=== PATIENT | female | born 1975 | race Caucasian/White ===

== ENCOUNTER 2020-04-10 19:31 | Outpatient (CLI) | payer OTHER | END 2020-04-10 19:32 | disposition critical access hospital (66) | LOC: EMS 19:31 | PROVIDERS: ATTEND Surgery | DX: R07.9 Chest pain, unspecified (principal) | CPT/HCPCS: A0425; A0427 ==

== ENCOUNTER 2020-04-10 19:55 | Emergency (ER) | payer OTHER ==
[2020-04-10 20:23] VITALS: BP 116/53
[2020-04-10 22:15] LABS: BASOPHILS # (AUTO) 0.1 10^3/uL (0.0-0.1); BASOPHILS % (AUTO) 0.6 %; EOSINOPHILS # (AUTO) 0.1 10^3/uL (0.0-0.7); EOSINOPHILS % (AUTO) 1.1 %; HGB - HEMOGLOBIN 12.4 g/dL (12.0-16.0); LYMPHOCYTES # (AUTO) 1.1 10^3/uL (1.5-3.5); LYMPHOCYTES % (AUTO) 12.9 %; MEAN CORPUSCULAR HEMOGLOBIN 30.6 pg (27.0-31.0); MEAN CORPUSCULAR HGB CONC 33.6 g/dL (32.0-36.0); MEAN CORPUSCULAR VOLUME 91.1 fL (81.0-99.0); MONOCYTES # (AUTO) 0.4 10^3/uL (0.0-1.0); MONOCYTES % (AUTO) 4.2 %; NEUTROPHILS # (AUTO) 6.9 10^3/uL (1.5-6.6); NEUTROPHILS % (AUTO) 80.8 %; PLT - PLATELET COUNT 307 10^3/uL (130-450); RED BLOOD COUNT 4.05 10^6/uL (4.20-5.40); RED CELL DISTRIBUTION WIDTH 12.8 % (12.0-15.0); WHITE BLOOD COUNT 8.5 x10^3/uL (4.8-10.8)
[2020-04-10 22:28] LABS: ALBUMIN/GLOBULIN RATIO 1.3 (1.0-2.2); BILIRUBIN,TOTAL 0.6 mg/dL (0.2-1.0); CALCIUM 9.3 mg/dL (8.5-10.3); CREATININE 0.7 mg/dL (0.4-1.0); TOTAL PROTEIN 7.2 g/dL (6.7-8.2)
--- NOTE | 2020-04-10 22:51 | ED Physician Documentation ---
PD HPI CHEST PAIN - Stated complaint Stated Complaint: CHEST DISCOMFORT - Chief complaint Chief Complaint: Cardiac - History obtained from History obtained from: Patient - History of Present Illness Timing - onset: Enter time (18:00), Today Timing - onset during: Rest Timing - details: Abrupt onset Pain level max: 2 Pain level now: 0 Quality: Dull Location: Substernal Radiation: Other (no radiation) Associated symptoms: Palpitations, Other (anxious). No: Shortness of air, Diaphoresis, Nausea, Vomiting, Feeling faint / dizzy, General Weakness Similar symptoms before: Diagnosis (similar to previous episodes of PSVT) Recently seen: Not recently seen - Additional information Additional information: c/o sudden onset rapid palpitations 6 PM today while at rest associated with anxiety (developed anxiety after the palpitations started). she feels the palpitations are similar to previous episodes of PSVT. she also had mild midline/left chest discomfort which resolved [employer]. BIBA, medics administered 1mg IV morphine. palpitations also have resolved [employer] Review of Systems Constitutional: denies: Fever, Chills, Sweats Cardiac: reports: Chest pain / pressure, Palpitations. denies: Pedal edema, Calf pain Respiratory: reports: Reviewed and negative GI: reports: Reviewed and negative PD PAST MEDICAL HISTORY - Past Medical History Past Medical History: Yes Cardiovascular: Hypertension ULTRASOUND TECH: Ovarian cysts, Fibroids Psych: Anxiety, Post traumatic stress disorder - Past Surgical History Past Surgical History: Yes /ULTRASOUND TECH: Tubal ligation, LEEP (Cervical surgery) - Allergies Allergies/Adverse Reactions: Allergies Allergy/AdvReac Type Severity Reaction Status Date / Time diphenhydramine Allergy Anxiety Verified 04/10/20 20:05 [From Benadryl] fluticasone [From Flonase] Allergy Dizziness Verified 04/10/20 20:04 promethazine [From Phenergan] Allergy Anaphylaxis Verified 04/10/20 20:05 - Social History Does the pt smoke?: No Smoking Status: Never smoker Does the pt drink ETOH?: Yes Does the pt have substance abuse?: No - POLST Patient has POLST: No PD ED PE NORMAL - Vitals Vital signs reviewed: Yes - General General: Alert and oriented X 3, No acute distress, Well developed/nourished - Cardiac Cardiac: RRR, No murmur, No gallop, No rub - Respiratory Respiratory: No respiratory distress, Clear bilaterally - Derm Derm: Normal color, Warm and dry - Extremities Extremities: No edema Results - Vitals Vitals: Oxygen O2 Source Room air - EKG (time done) No standard instances Rate: Rate (enter#) (98) Rhythm: NSR Raymond: Normal Intervals: Normal [place] QRS: Low voltage Ischemia: Normal ST segments - Labs Labs: Laboratory Tests 04/10/20 04/10/20 04/10/20 22:09 22:09 22:09 WBC 8.5 RBC 4.05 L Hgb 12.4 Hct 36.9 L MCV 91.1 MCH 30.6 MCHC 33.6 RDW 12.8 Plt Count 307 MPV 10.0 Neut # (Auto) 6.9 H Lymph # (Auto) 1.1 L [place] # (Auto) 0.4 Eos # (Auto) 0.1 Baso # (Auto) 0.1 Absolute Nucleated RBC 0.00 Nucleated RBC % 0.0 Sodium 140 Potassium 3.8 Chloride 105 Carbon Dioxide 26 Anion Gap 9.0 BUN 15 Creatinine 0.7 Estimated GFR (MDRD) 90 Glucose 137 H Calcium 9.3 Total Bilirubin 0.6 AST 16 ALT 17 Alkaline Phosphatase 68 Troponin I High Sens 2.7 Total Protein 7.2 Albumin 4.0 Globulin 3.2 Albumin/Globulin Ratio 1.3 Lipase 22 - Rads (name of study) chest xray Radiology: Prelim report reviewed, See rad report PD MEDICAL DECISION MAKING - ED course Complexity details: reviewed results, re-evaluated patient, considered differential, d/w patient ED course: remained asymptomatic during ED stay Departure - Departure Disposition: 01 Home, Self Care Clinical Impression: Palpitations Condition: Good Instructions: ED Palpitations Discharge Date/Time: 04/10/20 23:18
--- NOTE | 2020-04-11 08:12 | XRAY Report ---
PROCEDURE: Chest 2 View X-Ray INDICATIONS: chest pain TECHNIQUE: 2 view(s) of the chest. COMPARISON: None. FINDINGS: Surgical changes and devices: None. Lungs and pleura: No pleural effusions or pneumothorax. Focal opacity noted in the right lung base w hich could represent pneumonia, aspiration or parenchymal scarring. Mediastinum: Mediastinal contours are normal. Heart size is normal. Bones and chest wall: No suspicious bony abnormalities. Soft tissues appear unremarkable. IMPRESSION: Small right middle lobe opacity which could represent scarring, atelectasis, aspiration or pneumonia. Reviewed by: Yane Lopez MD, PhD on 04/11/2020 8:11 AM PDT Approved by: Yane Lopez MD, PhD on 04/11/2020 8:11 AM PDT Station ID: [id number]
== END 2020-04-10 23:18 | disposition home or self-care (01) ==
LOC: EDUNIT# → ED 19:55
DX: R00.2 Palpitations (principal); R07.89 Other chest pain; F41.9 Anxiety disorder, unspecified; I10 Essential (primary) hypertension
CPT/HCPCS: 36415; 71046; 80053; 83690; 84484; 85025; 93005; 99284

== ENCOUNTER 2020-06-05 15:07 | Outpatient (CLI) | payer OTHER ==
--- NOTE | 2020-06-05 16:37 | SLEEP CARE CONSULTATION ---
Information from patient questionnaire entered by Hanna Mathur. I have reviewed and concur with the information entered by Hanna Mathur. This document represents the service I personally performed and the decisions made by me, Phan Nava MD, [facility]. History of Present Illness Service Date and Time: 06/05/2020 1507 Reason for Visit: New patient Chief Complaint: reports: Insomnia, Other (Sleep apnea) Date of Onset: years Usual bedtime: 8 am Time it takes to fall asleep: varies Snores at night: Yes Observed to quit breathing while asleep: Yes Sleeps alone due to snoring: No (other health reasons) Number of times waking at night: varies Reasons for waking at night: reports: Choking, Snoring, Gasping for air, Pain Toss, Turn, or Twitch while sleeping: Yes Recalls having dreams: Yes Usually gets out of bed at: 2-4 houts after sleep Feels refreshed in the morning: No Morning headache: Yes Sleepy or fatigued during the day: Yes Ever fallen asleep while driving: No Takes day naps: No Dreams during day naps: No Prior sleep studies: No Additional HPI information: I had the pleasure of seeing Ms. Lopes today regarding the possibility of her having a sleep disorder. As you know, she is a 45 year old lady who complains of insomnia and snore. She says her snore got worse after gained 100+ lbs being put on steroid for lung cancer. The patient tells me that she normally goes to bed around 7 am, and it takes her approximately just a few minutes to fall asleep. She takes clonazepam and metoprolol before her bedtime. She has been told that she snores loudly and irregularly at night. She has also been observed to stop breathing in her sleep. Her spouse is in [place]. She can recall waking up on the average of 1 - 2 times during the night. Most of the time she wakes up because of something startling her. She has awakened occasionally because of her own snoring, choking, and having to gasp for air. There is a lot of tossing and turning in her sleep. No somniloquy (sleep talking) or somnambulism (sleep walking). Generally she can recall having dreams. In the morning she usually gets up out of the bed around 11 a.m. - noon not feeling refreshed nor rested. She usually has headache that lasts 2 hours. During the day she complains of feeling sleepy and fatigued. Her score on [place] Sleepiness Scale is 7 out of 24. She has never fallen asleep while driving nor has had any accident due to sleepiness. She usually does not take naps during the day. She reports having impaired concentration during the day. She also reports sleep paralysis and restless leg syndrome. - Parasomnia Symptoms Ever been unable to move upon waking from sleep: Yes Ever felt weak in the knees when startled or emotional: Yes Bothered by creepy, crawly, restless sensations in legs: Yes Problems with memory or concentration: Yes Subjective Initial [place] Sleepiness Scale score: 7 (in 2019 ) Past Medical History Past Medical History: reports: Hypertension, Dysphagia, Claustrophobia, Arthritis, Arrythmia, Fibromyalgia, Anemia, Anxiety, Asthma, Depression, Emphysema, Mood disorder, GERD, Other (lung cancer; s/p lobectomy 2016) Social History The patient's occupation is disabled. Patient is and lives in [place]. Have you smoked in the past 12 months: No Cigarettes per day (20/pack): 20 Years of smokin Quit date: 2015 Smoking Pack Years: 30.0 Alcohol use: No Caffeine use: Yes Caffeine amount and frequency: varies, usually 1/2 caff Family History Family history of sleep disordered breathing: Yes (grandmother, father, brother) Family Hx Sleep Apnea: Sibling: Sleep apnea - Treated Allergies and Home Medications Drug allergies reviewed: Yes Home medication list reviewed: Yes Review of Systems Weight gain over past 5 years: 100 Cardiovascular: reports: high blood pressure (other), palpitations, irregular heart rate or pulse, leg or foot swelling, have to sleep sitting up, other (PSVT) Respiratory: reports: shortness of breath, wheeze, sputum production Gastrointestinal: reports: heartburn, difficulty swallowing, nausea (sometimes), diarrhea, abdominal pain, other (removal of pre-cancerous polyops, diverticulosis) Urinary: reports: frequency, urgency Neurological: reports: headaches, head trauma, disorientation, speech dysfunction, gait or balance problems, other (brain fog, short term memory loss, post concusive disorder) Psychiatric: reports: anxiety, depression, mood disorder, claustrophobia, other (early onset PTSD) Ear/Nose/Throat: reports: nasal congestion, sinus problems, dry mouth/throat, hoarseness, injury to nose, wisdom teeth removed Endocrine: reports: sluggishness, too hot or cold, excessive thirst, increased urination, unexplained weakness (sometimes), other (adrenol adenoma) Musculoskeletal: reports: joint pain, neck pain, back pain, joint swelling, muscle pain or cramping, mobility problems Immunologic: reports: sneezing, rash, itching, allergies to food or environment Physical Exam Height: 5 ft 1 in Weight: 225 lb Body Mass Index: 42.5 BMI Classification: Morbidly Obese Impression and Plan IMPRESSION: 1. Obstructive Sleep Apnea-Hypopnea Syndrome, as suggested by history of loud and irregular snoring, observed cessation of breath while asleep, unrefreshed sleep, cognitive impairment, and daytime hypersomnolence. Narrow oropharynx and obesity are common predisposing factors for obstructive sleep apnea-hypopnea syndrome. Pathophysiology of sleep-disordered breathing was discussed. I recommend proceeding to polysomnography to confirm the diagnosis and to assess severity. If she has significant sleep disordered breathing, a manual CPAP titration study will also be performed to find the optimal treatment pressure. I informed the patient of what the sleep studies involve and after some discussion, she agreed to proceed. 2. Circadian Rhythm Disorder. The patient presently sleeps during the day. Because she does not work, it does not create too much problem for her. We will arrange for her sleep study to be performed during the day instead of at night. Plan: 1. Schedule an in-laboratory polysomnography during the day. 3. Avoid alcohol, sedative and muscle relaxant around bedtime. 4. Attempt to lose weight. 5. Return in 1 to 2 weeks after the study to discuss results and initiate therapy. Visit Type: Telehealth Video Video Type: [employer] Other Participants: Child Location of Provider: Home Patient agrees and consents to this telehealth visit type: Yes Patient agrees to have their insurance billed: Yes Time Spent with Patient (minutes): 15 Provider Statement: I spent 100% of the Telehealth Video Call with the patient with greater than 50% spent counseling the patient and coordination of care.
== END 2020-06-05 15:08 | disposition home or self-care (01) ==
LOC: SC 15:07
PROVIDERS: ATTEND Internal Medicine Pulmonary Disease
DX: R06.83 Snoring (principal); G47.8 Other sleep disorders; G47.10 Hypersomnia, unspecified; R51 Headache; R06.81 Apnea, not elsewhere classified; E66.01 Morbid (severe) obesity due to excess calories; Z68.41 Body mass index [BMI] 40.0-44.9, adult; I10 Essential (primary) hypertension; I49.9 Cardiac arrhythmia, unspecified; G47.20 Circadian rhythm sleep disorder, unspecified type

== ENCOUNTER 2020-07-19 07:40 | Outpatient (CLI) | payer OTHER | END 2020-07-19 07:41 | disposition EMS.NT | LOC: EMS 07:40 | PROVIDERS: ATTEND Surgery | DX: R06.02 Shortness of breath (principal) ==

== ENCOUNTER 2020-11-14 16:04 | Outpatient (CLI) | payer OTHER ==
[2020-11-14 16:50] VITALS: BP 100/78
--- NOTE | 2020-11-14 16:50 | SLEEP CARE CONSULTATION ---
Information from patient questionnaire entered by Moraima Harkins. I have reviewed and concur with the information entered by Moraima Harkins. This document represents the service I personally performed and the decisions made by me, Cristy Mendoza ARNP. History of Present Illness Service Date and Time: 11/14/2020 1604 Reason for follow up: other (Restart process) Prior sleep studies: No HPI additional information: I had the pleasure of seeing ISMA JIMENEZ today regarding the possibility of her having a sleep disorder. Her current complaints are unrefreshed sleep, excessive daytime sleepiness, waking up with heart pounding in the morning, morning headaches, she snores and has observed pauses in breathing when sleeping per her . She feels nearly daily like the blood in her body is in the wrong place when she wakes in the morning and a pulse oximeter she bought states low reading. She has a history of lung cancer, thoracotomy, PSVT syndrome and PTSD. She was referred prior to Covid pandemic and on her way prior to getting a sleep study done she was accosted. She is not returning to get evaluated for sleep disorder. Sleep Study - Results Prior sleep studies: No Subjective Initial [place] Sleepiness Scale score: 7 (in 2020 ) Current [place] Sleepiness Scale score: 7 Allergies and Home Medications Drug allergies reviewed: Yes (diphenhydramine, fluticasone, promethazine) Home medication list reviewed: Yes Allergy and home medication list: Metropolol 12.5 mg bid Clonazepam Vitamin C and iron Vitamin E Creon daily multivitamin Protonix Albuterol inhaler Review of Systems Review of systems same as previous: Yes (no changes) Physical Exam Blood Pressure: 100/78 Cuff size: wrist Heart Rate: 93 O2 Saturation: 97 Height: 5 ft 2 in Weight: 233 lb Body Mass Index: 42.6 BMI Classification: Morbidly Obese Impression and Plan 1. Suspected Obstructive Sleep Apnea-Hypopnea Syndrome, as suggested by a history of loud and irregular snoring, observed cessation of breath while asleep, gasping or choking in sleep, morning headache, frequent awakening during the night, unrefreshed sleep, cognitive impairment, and excessive daytime sleepiness. Narrow oropharynx and obesity are common predisposing factors for obstructive sleep apnea-hypopnea syndrome. I recommend proceeding to polysomnography to confirm the diagnosis and to assess severity. If the patient has significant sleep disordered breathing, a manual CPAP titration study will also be performed to find the optimal treatment pressure. I informed the patient of what the sleep studies involve and after some discussion, obtained agreement to proceed. The pathophysiology of obstructive sleep apnea-hypopnea syndrome was discussed with the patient and health risks of cardiovascular and cerebrovascular disease if not treated. Risks of drowsy driving discussed in detail and patient advised to avoid long distance driving and to tie puller at the first sign of drowsiness. Patient agreed to plan. She has history paroxysmal supraventricular tachycardia syndrome and PTSD. * Schedule polysomnography +- manual CPAP titration study and return in 1-2 weeks after the study to discuss result and initiate therapy. * Avoid long distance driving or driving when feeling sleepy. * Avoid alcohol, sedative and muscle relaxant around bedtime. * Attempt to lose weight. * Review instructions provided by trained office staff on how to prepare for the sleep study. * Return for follow-up after sleep study completed. Counseling Topics: Weight loss health impact Visit Type: In Office Time Spent with Patient (minutes): 30 Provider Statement: I spent 100% of the Face to Face Visit with the patient with greater than 50% spent counseling the patient and coordination of care.
== END 2020-11-14 16:05 | disposition home or self-care (01) ==
LOC: SC 16:04
PROVIDERS: ATTEND Nurse Practitioner Family
DX: R06.83 Snoring (principal); R06.81 Apnea, not elsewhere classified; G47.8 Other sleep disorders; R51.9 Headache, unspecified; G47.10 Hypersomnia, unspecified; E66.01 Morbid (severe) obesity due to excess calories; Z68.41 Body mass index [BMI] 40.0-44.9, adult; R41.89 Other symptoms and signs involving cognitive functions and awareness
CPT/HCPCS: 99212; 99214

== ENCOUNTER 2021-01-01 15:28 | Outpatient (CLI) | payer OTHER | END 2021-01-01 15:29 | disposition home or self-care (01) | LOC: SC 15:28 | PROVIDERS: ATTEND Nurse Practitioner Family | DX: G47.33 Obstructive sleep apnea (adult) (pediatric) (principal); R09.02 Hypoxemia; E66.01 Morbid (severe) obesity due to excess calories; Z68.41 Body mass index [BMI] 40.0-44.9, adult | CPT/HCPCS: 95806 ==

== ENCOUNTER 2021-01-08 16:45 | Outpatient (CLI) | payer OTHER ==
--- NOTE | 2021-01-08 17:24 | SLEEP CARE CONSULTATION ---
Information from patient questionnaire entered by Moraima Harkins. I have reviewed and concur with the information entered by Moraima Harkins. This document represents the service I personally performed and the decisions made by me, Cristy Mendoza ARNP. History of Present Illness Service Date and Time: 01/08/2021 1645 Initial [place] Sleepiness Scale score: 7 (in 2020 ) Current [place] Sleepiness Scale score: 5 Additional HPI information: ISMA JIMENEZ returns for follow up and results of the recently performed home sleep study. I explained the pathophysiology behind obstructive sleep apnea. We then spent quite a bit of time discussing different treatment options. For mild obstructive sleep apnea, surgery and oral appliance are alternatives to nasal CPAP therapy but in moderate or severe cases, nasal CPAP is the most effective and reliable treatment. Because apnea is primarily in supine position, then positional management therapy could be effective. Methods discussed such as positioning with pillows, using a T-shirt with tennis balls in the back, and shown commercial products that have a pillow format on back to prevent supine sleep. I reviewed the impact of weight changes on sleep apnea and strongly recommended losing weight. After some discussion, the patient opted to go with the nasal CPAP therapy. Nasal autoCPAP set at 4-15 cmH20 will be ordered with rationale explained. A manual titration study will be ordered if unable to find optimal pressure with office adjustments. I explained how CPAP machine works with sample devices Respironics Dreamstation and [employer] [id number] and what to expect when using the machine. Using CPAP every night in order to get used to it was emphasized. Patient advised to put CPAP mask on before getting into bed so as not to fall asleep without CPAP. To assist acclimation to CPAP use, it could also be used for a short time during day while reading or watching TV. The patient was instructed to call the CPAP supplier to discuss any mechanical problem that may occur. If the mask given is uncomfortable or is difficult to keep on through the night even with adjustment, contact the CPAP supplier as many will replace with another mask style if notified before 30 days. If snoring or perceives is not getting enough air or too much air from the machine, notify this office. [facility] patient education PAP tips reviewed and given to patient. Patient does not drink alcohol. Patient was cautioned about risks of drowsy driving until sleepiness symptoms resolve. Patient denies drowsy driving. Sleep Study - Results Type of Sleep Study: Home sleep study Prior sleep studies: No Polysomnography/Home Sleep Study results: Physician Impression: The quality of the study is good. The length of the study is adequate (> 240 minutes). Please also see the tabulated and graphic data. 1. Obstructive Sleep Apnea-Hypopnea (ICD-10 G47.33), mild, with an AHI of 11.0 /hr and clive SaO2 of 79%. During the study, the patient had 74 apneas (72 obstructive, 0 central, 2 mixed) and 34 hypopneas. The longest episode lasted 66.0 seconds. The respiratory events occurred independently of sleep stage and body position (supine AHI was 10.0 and non-supine, 12.28). 2. Hypoxemia (ICD-10 R09.02), moderate, with the lowest oxygen saturation of 79 % and 18.9 minutes with SaO2 under 90%. Baseline oxygen saturation was normal (Average oxygen saturation was 94%). Allergies and Home Medications Home medication list reviewed: Yes Allergy and home medication list: increase in metroprolol to 25 mg 2 x day Vitamin D 1000 IU in addition Review of Systems Review of systems same as previous: Yes (no changes) Physical Exam Heart Rate: 92 O2 Saturation: 98 Height: 5 ft 2 in Weight: 235 lb Body Mass Index: 43.0 BMI Classification: Morbidly Obese Impression and Plan 1. Obstructive Sleep Apnea-Hypopnea Syndrome, mild, with lowest oxygen saturation of 79%. Obviously this is the cause of the patients symptoms of unrefreshed sleep, and excessive daytime sleepiness. Positive pressure therapy could benefit PTSD (mood disorder) and heart arrhythmia (paroxysmal SVT). As mentioned above, the patient will be started on nasal autoCPAP therapy with pressure set at 4-15 cmH2O. A manual titration study will be completed if unable to find optimal treatment pressure with office adjustments. Compliance guidelines also reviewed. A copy of compliance guidelines will be given for reference at check out. * Nasal auto CPAP therapy, pressure at 4-15 cm H2O. * Attempt to lose weight. * Avoid alcohol consumption near bedtime. * The patient is again cautioned about driving until sleepiness completely resolves. * Return one month after CPAP obtained. I will assess response to therapy and compliance at that time. Counseling Topics: Weight loss health impact Visit Type: In Office Time Spent with Patient (minutes): 26 Provider Statement: I spent 100% of the Face to Face Visit with the patient with greater than 50% spent counseling the patient and coordination of care.
== END 2021-01-08 16:46 | disposition home or self-care (01) ==
LOC: SC 16:45
PROVIDERS: ATTEND Nurse Practitioner Family
DX: G47.33 Obstructive sleep apnea (adult) (pediatric) (principal); E66.01 Morbid (severe) obesity due to excess calories; Z68.41 Body mass index [BMI] 40.0-44.9, adult
CPT/HCPCS: 99212; 99213

== ENCOUNTER 2021-02-20 16:52 | Outpatient (CLI) | payer OTHER ==
--- NOTE | 2021-02-20 17:54 | SLEEP CARE CONSULTATION ---
Information from patient questionnaire entered by Moraima Harkins. I have reviewed and concur with the information entered by Moraima Harkins. This document represents the service I personally performed and the decisions made by me, Cristy Mendoza ARNP. History of Present Illness Service Date and Time: 02/20/2021 165 Previous diagnosis: Mild, Obstructive Sleep Apnea-Hypopnea Syndrome AHI: 11.0 Reason for follow up: other (trouble with CPAP use) Equipment type: CPAP Equipment obtained from: Other ([employer]; got initial supplies) Mask style: Nasal Last cushion change: 3 weeks Prior sleep studies: No Year and Where: 2020 [facility] Type of Sleep Study: Home sleep study HPI additional information: ISMA JIMENEZ was diagnosed to have mild, AHI 11.0, obstructive sleep apnea- hypopnea syndrome and returned today with spouse for CPAP therapy for follow up due to having issues with CPAP use. CPAP Compliance Data - Data Reviewed with Patient Average duration of nightly device use: 7 h 8 min Compliance rate %: 83.3 Current pressure setting (cmH2O): 4-15 (median 5.3, avg 8.0 and max 9.5) Humidity settin Heated hose settin Average residual AHI: 3.6 Average large leak: 5 min 17 sec Subjective Patient concerns: reports: aerophagia, condensation in mask/hose, nasal congestion, dry mouth, nose, throat, other (Headache). denies: mask discomfort, air blowing in eyes, mask leak noise, epistaxis Observed to snore while using device: No Current pressure setting perceived as: too low (?) On therapy, patient: reports: awakening more refreshed, other (still feeling fatigued during the day) Initial [place] Sleepiness Scale score: 7 (in 2019 ) Current [place] Sleepiness Scale score: 9 Allergies and Home Medications Home medication list reviewed: Yes (advair inhaler, not started yet) Review of Systems Review of systems same as previous: Yes (no changes) Physical Exam Heart Rate: 83 O2 Saturation: 98 Height: 5 ft 2 in Weight: 238 lb Body Mass Index: 43.5 BMI Classification: Morbidly Obese Impression and Plan 1. Obstructive Sleep Apnea-Hypopnea Syndrome, mild, with good treatment compliance and good apnea control. On CPAP therapy, the patient does feel more rested when she gets up in the morning. She continues to have fatigue during the day. She was told by the RT at the [facility] [place] that she was having central apneas and that she should make sure she was on the right machine. She did feel that her HST was not completely accurate because she only felt like she slept 2 hours that night. She is very concerned that she is getting the appropriate treatment. I think it would help to have her do a titration study to verify she is on appropriate therapy. She agreed to plan. Patient also thinks her pressure may be too low but also complains of some aerophagia. I am going to adjust her pressure setting to 5-10 cmH2O to reflect machine use and she will let me know if the pressure is uncomfortable so I can adjust it again. She has had issues with mask fitting but states the current nasal mask is comfortable. She did not know she could use the humidifier and was having some dry mouth. She turned it on 2 nights ago and felt like there was a w et blanket under her nose. Oral dryness can be reduced by adjusting humidity setting higher or heated hose lower or by adjusting both settings. Verbal instructions given on how to change humidity and heated hose settings with rationale explaining why to change. Patient advised that chronic oral dryness can affect dental health. She is going to try to adjust her humidity and heated hose until she finds a comfortable setting. She voiced understanding and agreement. Patient's apnea severity and rationale for treatment to reduce apnea, improve sleep quality and reduce cardiovascular and cerebrovascular events was reviewed. I also reviewed the benefit of consistent device use of CPAP for arrhythmia, and mood disorder (PTSD). * Titration study * Change auto CPAP pressure to 5-10 cmH2O * Notify me if snoring with mask or feeling that the pressure is too much or too little * Attempt to lose weight * Call this office if any problems using CPAP * Return for follow up after titration study completed, or sooner if concerns arise Counseling Topics: Weight loss health impact Visit Type: In Office Other Participants: Spouse/Significant Other Time Spent with Patient (minutes): 39 Provider Statement: I spent 100% of the Face to Face Visit with the patient with greater than 50% spent counseling the patient and coordination of care.
== END 2021-02-20 16:53 | disposition home or self-care (01) ==
LOC: SC 16:52
PROVIDERS: ATTEND Nurse Practitioner Family
DX: G47.33 Obstructive sleep apnea (adult) (pediatric) (principal); E66.01 Morbid (severe) obesity due to excess calories; Z68.41 Body mass index [BMI] 40.0-44.9, adult
CPT/HCPCS: 99212; 99214

== ENCOUNTER 2021-03-31 13:15 | Emergency (ER) | payer OTHER ==
--- NOTE | 2021-03-31 13:50 | ED Physician Documentation ---
PD HPI LOWER EXT INJURY - Stated complaint Stated Complaint: LT LEG PX - Chief complaint Chief Complaint: Ext Problem - History obtained from History obtained from: Patient - Additional information Additional information: 45-year-old woman with history of lung cancer in remission, fibromyalgia, degenerative disc disease has been in cardiac rehab lately for deconditioning and doing more activity. She woke yesterday morning at 6 AM, about 30 hours ago with severe left leg pain of the calf and hamstring. She presumes it may be related to increased activity from cardiac rehab, but was referred here for further evaluation and treatment by nurse advice line. She has a specific concern about rhabdomyolysis. No increase in shortness of breath or chest pain. 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 FELLER BLINDSTITCH: Tubal ligation, LEEP (Cervical surgery) - Present Medications Home Medications: Ambulatory Orders Medication Instructions Recorded Confirmed Albuterol Sulfate [Proair Hfa 1 puffs INH Q4HR PRN 03/31/21 03/31/21 Inhaler] Fluticasone/Salmeterol [Advair Hfa 1 puffs INH DAILY 03/31/21 03/31/21 115-21 Mcg Inhaler] Metoprolol Tartrate [Lopressor] 25 mg PO DAILY 03/31/21 03/31/21 Pantoprazole [Protonix inj] 40 mg PO DAILY 03/31/21 03/31/21 clonazePAM [Clonazepam] 0.5 mg PO DAILY 03/31/21 03/31/21 - Allergies Allergies/Adverse Reactions: Allergies Allergy/AdvReac Type Severity Reaction Status Date / Time diphenhydramine Allergy Anxiety Verified 04/10/20 20:05 [From Benadryl] fluticasone [From Flonase] Allergy Dizziness Verified 04/10/20 20:04 promethazine [From Phenergan] Allergy Anaphylaxis Verified 04/10/20 20:05 - Social History Does the pt smoke?: No Smoking Status: Never smoker Does the pt drink ETOH?: Yes Does the pt have substance abuse?: No - POLST Patient has POLST: No PD ED PE NORMAL - Vitals Vital signs reviewed: Yes - General General: Alert and oriented X 3, No acute distress - Extremities Extremities: Other (Left leg is not edematous, pedal perfusion is normal. She is tender about the calf, hamstring, buttock, and medial thigh.) - Neuro Neuro: Alert and oriented X 3, Normal speech Results - Vitals Vitals: Vital Signs - 24 hr 03/31/21 03/31/21 13:26 15:02 Temperature 36.6 C 36.4 C L Heart Rate 85 73 Respiratory 16 16 Rate Blood Pressure 104/76 104/69 O2 Saturation 98 96 Oxygen O2 Source Room air - Labs Labs: Laboratory Tests 03/31/21 03/31/21 14:09 14:09 WBC 5.3 RBC 4.14 L Hgb 11.9 L Hct 36.8 L MCV 88.9 MCH 28.7 MCHC 32.3 RDW 13.2 Plt Count 320 MPV 9.6 Neut # (Auto) 3.6 Lymph # (Auto) 1.2 L Jackson # (Auto) 0.4 Eos # (Auto) 0.1 Baso # (Auto) 0.0 Absolute Nucleated RBC 0.00 Nucleated RBC % 0.0 Sodium 138 Potassium 4.1 Chloride 103 Carbon Dioxide 27 Anion Gap 8.0 BUN 12 Creatinine 0.7 Estimated GFR (MDRD) 90 Glucose 107 H Calcium 9.2 Magnesium 2.2 Total Creatine Kinase 277 H PD MEDICAL DECISION MAKING - ED course ED course: 45-year-old woman with left leg pain, seems muscular, given her history though DVT is considered, she was also concerned about rhabdomyolysis. Neither are present on testing. Departure - Departure Disposition: 01 Home, Self Care Clinical Impression: Pain of lower extremity Qualifiers: Laterality: left Qualified Code(s): M79.605 - Pain in left leg Condition: Good Record reviewed to determine appropriate education?: Yes Instructions: ED Muscle Pain Leg Cramps Comments: Call your doctor to arrange a follow-up appointment, make the next available appointment. In the interim, return anytime if worse or if new symptoms develop. Discharge Date/Time: 03/31/21 15:04
[2021-03-31 14:15] LABS: BASOPHILS % (AUTO) 0.8 %; EOSINOPHILS # (AUTO) 0.1 10^3/uL (0.0-0.7); EOSINOPHILS % (AUTO) 1.9 %; HCT - HEMATOCRIT 36.8 % (37.0-47.0); HGB - HEMOGLOBIN 11.9 g/dL (12.0-16.0); LYMPHOCYTES # (AUTO) 1.2 10^3/uL (1.5-3.5); LYMPHOCYTES % (AUTO) 22.9 %; MEAN CORPUSCULAR HEMOGLOBIN 28.7 pg (27.0-31.0); MEAN CORPUSCULAR HGB CONC 32.3 g/dL (32.0-36.0); MEAN CORPUSCULAR VOLUME 88.9 fL (81.0-99.0); MEAN PLATELET VOLUME 9.6 fL (7.9-10.8); MONOCYTES # (AUTO) 0.4 10^3/uL (0.0-1.0); MONOCYTES % (AUTO) 7.2 %; NEUTROPHILS # (AUTO) 3.6 10^3/uL (1.5-6.6); PLT - PLATELET COUNT 320 10^3/uL (130-450); RED BLOOD COUNT 4.14 10^6/uL (4.20-5.40); RED CELL DISTRIBUTION WIDTH 13.2 % (12.0-15.0); WHITE BLOOD COUNT 5.3 x10^3/uL (4.8-10.8)
[2021-03-31 14:26] LABS: CALCIUM 9.2 mg/dL (8.5-10.3); CREATININE 0.7 mg/dL (0.4-1.0); MAGNESIUM 2.2 mg/dL (1.7-2.8); POTASSIUM 4.1 mmol/L (3.5-5.0)
--- NOTE | 2021-03-31 15:00 | Ultrasound Report ---
PROCEDURE: Duplex Ext Veins Left INDICATIONS: Leg pain TECHNIQUE: Real-time imaging, as well as color and pulse Doppler interrogation, were performed of the lower extr emity deep veins from the inguinal ligament to the popliteal fossa. COMPARISON: None. FINDINGS: The deep veins are normally compressible, and free of intraluminal thrombus. Color and pu lse Doppler demonstrate normal phasic intraluminal flow. There is normal augmentation response to di stal compression maneuver. IMPRESSION: No DVT in the left lower extremity. Reviewed by: Racheal Huertas MD on 03/31/2021 2:58 PM PDT Approved by: Racheal Huertas MD on 03/31/2021 2:58 PM PDT Station ID: [id number]
[2021-03-31 15:04] VITALS: BP 104/69
== END 2021-03-31 15:04 | disposition home or self-care (01) ==
LOC: ED 13:15
DX: M79.605 Pain in left leg (principal)
CPT/HCPCS: 36415; 80048; 82550; 83735; 85025; 99283; 99284

== ENCOUNTER 2021-04-05 11:05 | Outpatient (CLI) | payer OTHER ==
--- NOTE | 2021-04-05 12:46 | SLEEP CARE CONSULTATION ---
Information from patient questionnaire entered by Hanna Mathur. I have reviewed and concur with the information entered by Hanna Mathur. This document represents the service I personally performed and the decisions made by , Cristy Mendoza ARNP. History of Present Illness Service Date and Time: 04/05/2021 1105 Previous diagnosis: Mild, Obstructive Sleep Apnea-Hypopnea Syndrome AHI: 11.0 (in 2020) Reason for follow up: first compliance Equipment type: CPAP Equipment obtained from: Other ([employer]; getting supplies) Mask style: Nasal Backup mask available: Yes (other mask) Prior sleep studies: Yes Year and Where: 2020 - [facility] Type of Sleep Study: Home sleep study HPI additional information: ISMA JIMENEZ was diagnosed to have mild, AHI 11.0, obstructive sleep apnea- hypopnea syndrome and returned today with spouse for CPAP therapy first compliance follow-up. CPAP Compliance Data - Data Reviewed with Patient Average duration of nightly device use: 9 hr 14 min Compliance rate %: 93.3 Current pressure setting (cmH2O): 7-15 Humidity settin Heated hose settin Average residual AHI: 3.5 Central apnea: 0.2 Obstructive apnea: 1.3 Hypopnea: 2.0 Average large leak: 1 min 22 sec Subjective Patient concerns: reports: aerophagia, mask discomfort, air blowing in eyes, nasal congestion, dry mouth, nose, throat, other (increased mixed apneas and new patterns, new mask fit). denies: mask leak noise, condensation in mask/hose, epistaxis Observed to snore while using device: No Current pressure setting perceived as: comfortable (sometimes feels too high in nose but other times too low) On therapy, patient: reports: other (not feeling more rested and sleeping better after starting cardiac rehab in last couple weeks since March 24). denies: drowsiness while driving Initial [place] Sleepiness Scale score: 7 (in 2019 ) Current [place] Sleepiness Scale score: 11 Allergies and Home Medications Home medication list reviewed: Yes (no new meds) Review of Systems Review of systems same as previous: No (slightly elevated CK serum (270)) Physical Exam Heart Rate: 87 O2 Saturation: 98 Height: 5 ft 1 in Weight: 236 lb Body Mass Index: 44.6 BMI Classification: Morbidly Obese Impression and Plan 1. Obstructive Sleep Apnea-Hypopnea Syndrome, mild, with good treatment compliance and good apnea control. Patient states that since starting her cardiac rehab she has not been waking up refreshed and sleeping better in the last 2 weeks. She states before she started rehab she was feeling some improvement of good sleep. She also recently was found to have an elevated CK that she is concerned about, thinking she has some bodily trauma either heart or muscle that is occurring. She was seen and evaluated for this already. She is concerned about times on her CPAP tracking mamadou that she has seen an increase in clear airway events and obstructive events that have been after her cardiac rehab sessions. Overall her respiratory events are being controlled with a residual AHI of 3.5. I reviewed with patient that fluctuations of episodes can occur normally and she can try to keep track of things that are happening on the days she sees these increases of events. If she sees a pattern she may be able to change these things. Patient is scheduled for a titration study to evaluate for appropriate pressure settings and machine to control her apnea at the end of the month. I will not adjust her pressure to give her adequate coverage for any increases in respiratory events she may experience. She will continue at the 7- 15 cmH2O. Patient has been having difficulty with her mask fit. She states her first mask did seem to fit well but when they sent her a replacement it has not been fitting as well since. They also sent her a full face mask because she had some issues with oral dryness to see if this would help reduce it. They sent her the wrong size and so when she tried to use it it was so confining that she could not continue with it. She will be calling to see if she can get the proper size from her DME supplier. She has adjusted the humidity to reduce nasal and oral dryness. She also tried the [place] Ease for her nose last night. I advised her to use it for a week and then as needed to get the best benefit. She voiced understanding. Patient is trying to increase her stamina before she tries to do more on losing weight. I encouraged her to take it at her pace but to continue trying when able. Patient's apnea severity and rationale for treatment to reduce apnea, improve sleep quality and reduce cardiovascular and cerebrovascular events was reviewed. I also reviewed the benefit of consistent device use of CPAP for arrhythmia and mood disorder (PTSD). * Continue auto CPAP pressure at 7-15 cmH2O * Continue with titration study as scheduled * Notify me if snoring with mask or feeling that the pressure is too much or too little * Try to lose weight when able * Call this office if any problems using CPAP * Return for follow up after titration study completed, or sooner if concerns arise Counseling Topics: Spare mask, Weight loss health impact Visit Type: In Office Other Participants: Spouse/Significant Other Time Spent with Patient (minutes): 39 Provider Statement: I spent 100% of the Face to Face Visit with the patient with greater than 50% spent counseling the patient and coordination of care.
== END 2021-04-05 11:06 | disposition home or self-care (01) ==
LOC: SC 11:05
PROVIDERS: ATTEND Nurse Practitioner Family
DX: G47.33 Obstructive sleep apnea (adult) (pediatric) (principal); E66.01 Morbid (severe) obesity due to excess calories; Z68.41 Body mass index [BMI] 40.0-44.9, adult
CPT/HCPCS: 99212; 99214

== ENCOUNTER 2021-04-22 17:38 | Outpatient (CLI) | payer OTHER | END 2021-04-22 17:39 | disposition critical access hospital (66) | LOC: EMS 17:38 | DX: R00.0 Tachycardia, unspecified (principal); R07.89 Other chest pain | CPT/HCPCS: A0425; A0427 ==

== ENCOUNTER 2021-04-22 18:02 | Emergency (ER) | payer OTHER ==
[2021-04-22 18:30] LABS: BASOPHILS % (AUTO) 0.5 %; EOSINOPHILS # (AUTO) 0.1 10^3/uL (0.0-0.7); EOSINOPHILS % (AUTO) 1.2 %; HCT - HEMATOCRIT 35.6 % (37.0-47.0); HGB - HEMOGLOBIN 11.5 g/dL (12.0-16.0); LYMPHOCYTES # (AUTO) 0.8 10^3/uL (1.5-3.5); LYMPHOCYTES % (AUTO) 12.1 %; MEAN CORPUSCULAR HEMOGLOBIN 28.1 pg (27.0-31.0); MEAN CORPUSCULAR HGB CONC 32.3 g/dL (32.0-36.0); MEAN PLATELET VOLUME 9.4 fL (7.9-10.8); MONOCYTES # (AUTO) 0.4 10^3/uL (0.0-1.0); MONOCYTES % (AUTO) 5.7 %; NEUTROPHILS # (AUTO) 5.2 10^3/uL (1.5-6.6); NEUTROPHILS % (AUTO) 80.3 %; PLT - PLATELET COUNT 320 10^3/uL (130-450); RED BLOOD COUNT 4.09 10^6/uL (4.20-5.40); RED CELL DISTRIBUTION WIDTH 12.5 % (12.0-15.0); WHITE BLOOD COUNT 6.5 x10^3/uL (4.8-10.8)
[2021-04-22 18:33] LABS: VBG PCO2 40.9 mmHg (41-51); VBG PH 7.409 (7.31-7.41)
[2021-04-22 18:34] LABS: VBG BASE EXCESS 0.6 mmol/L (-2 - +2); VBG HCO3 25.3 mmol/L (23-28); VBG OXYGEN SATURATION 53.4 % (60-80); VBG PO2 26.3 mmHg (25-47); VBG TOTAL CO2 26.5 mmol/L (24-29)
[2021-04-22 18:41] LABS: CALCIUM 9.4 mg/dL (8.5-10.3); CREATININE 0.7 mg/dL (0.4-1.0); MAGNESIUM 2.1 mg/dL (1.7-2.8); POTASSIUM 3.5 mmol/L (3.5-5.0)
--- NOTE | 2021-04-22 19:10 | ED Physician Documentation ---
History of Present Illness - Stated complaint Stated Complaint: RAPID HEART RATE - Chief complaint Chief Complaint: Cardiac - History obtained from History obtained from: Patient, EMS - History of Present Illness Timing: Today Pain level max: 0 Pain level now: 0 - Additonal information Additional information: Patient is a 45-year-old female who presents to the emergency department with palpitations today. She felt like her heart was irregular and racing. Has a history of PSVT. She states that she sees a electric truck driver at [facility], Dr. Villar. She states that she has had deconditioning since Covid occurred, and she has now in cardiac rehab for reconditioning. Does not have any history of stents or bypasses. She states that there was a time when she was in [place] when she had 2 cardiac markers elevated, but not the third. Patient is currently feeling better. She took her metoprolol upon arrival to the emergency department Review of Systems Ten Systems: 10 systems reviewed and negative Constitutional: denies: Fever, Chills Throat: denies: Sore throat Cardiac: reports: Palpitations. 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: Tubal ligation, LEEP (Cervical surgery) - Present Medications Home Medications: Ambulatory Orders Medication Instructions Recorded Confirmed Albuterol Sulfate [Proair Hfa 1 puffs INH Q4HR PRN 03/31/21 04/22/21 Inhaler] Fluticasone/Salmeterol [Advair Hfa 1 puffs INH DAILY 03/31/21 04/22/21 115-21 Mcg Inhaler] Metoprolol Tartrate [Lopressor] 25 mg PO BID 03/31/21 04/22/21 Pantoprazole [Protonix inj] 40 mg PO DAILY 03/31/21 04/22/21 clonazePAM [Clonazepam] 0.5 mg PO BID 03/31/21 04/22/21 Lipase/Protease/Amylase [Freddy Navarro 48,000 units PO DAILY 04/22/21 04/22/21 24,000 Units Capsule] - Allergies Allergies/Adverse Reactions: Allergies Allergy/AdvReac Type Severity Reaction Status Date / Time aspirin Allergy Unknown Verified 04/22/21 18:27 diphenhydramine Allergy Anxiety Verified 04/22/21 18:14 [From Benadryl] fluticasone [From Flonase] Allergy Dizziness Verified 04/22/21 18:14 promethazine [From Phenergan] Allergy Anaphylaxis Verified 04/22/21 18:14 - Social History Does the pt smoke?: No Smoking Status: Former smoker Does the pt drink ETOH?: Yes Does the pt have substance abuse?: No - POLST Patient has POLST: No PD ED PE NORMAL - Vitals Vital signs reviewed: Yes - General General: Alert and oriented X 3, No acute distress, Well developed/nourished - HEENT HEENT: PERRL, Moist mucous membranes - Neck Neck: Supple, no meningeal sign - Cardiac Cardiac: RRR, Strong equal pulses - Respiratory Respiratory: No respiratory distress, Clear bilaterally - Abdomen Abdomen: Soft, Non tender, Non distended - Derm Derm: Warm and dry - Extremities Extremities: No edema, No calf tenderness / cord - Neuro Neuro: Alert and oriented X 3 - Psych Psych: Normal mood, Normal affect Results - Vitals Vitals: Vital Signs - 24 hr 04/22/21 04/22/21 04/22/21 18:11 20:31 20:35 Temperature 36.0 C L 36.2 C L Heart Rate 113 H 83 81 Respiratory 18 17 17 Rate Blood Pressure 112/85 H 111/70 111/70 O2 Saturation 99 97 97 Oxygen O2 Source Room air - EKG (time done) 1813 Rate: Rate (enter#) (115) Rhythm: Sinus tachycardia [place]: Normal Intervals: Normal [place] QRS: Normal Ischemia: Normal ST segments Computer interpretation: Agree with computer - Labs Labs: Laboratory Tests 04/22/21 04/22/21 04/22/21 18:24 18:24 18:24 WBC 6.5 RBC 4.09 L Hgb 11.5 L Hct 35.6 L MCV 87.0 MCH 28.1 MCHC 32.3 RDW 12.5 Plt Count 320 MPV 9.4 Neut # (Auto) 5.2 Lymph # (Auto) 0.8 L Chaves # (Auto) 0.4 Eos # (Auto) 0.1 Baso # (Auto) 0.0 Absolute Nucleated RBC 0.00 Nucleated RBC % 0.0 VBG pH VBG pCO2 VBG pO2 VBG HCO3 VBG Total CO2 VBG O2 Saturation VBG Base Excess Sodium 140 Potassium 3.5 Chloride 103 Carbon Dioxide 27 Anion Gap 10.0 BUN 9 Creatinine 0.7 Estimated GFR (MDRD) 90 Glucose 112 H Calcium 9.4 Magnesium 2.1 TSH < 0.08 L 04/22/21 18:24 WBC RBC Hgb Hct MCV MCH MCHC RDW Plt Count MPV Neut # (Auto) Lymph # (Auto) Chaves # (Auto) Eos # (Auto) Baso # (Auto) Absolute Nucleated RBC Nucleated RBC % VBG pH 7.409 VBG pCO2 40.9 L VBG pO2 26.3 VBG HCO3 25.3 VBG Total CO2 26.5 VBG O2 Saturation 53.4 L VBG Base Excess 0.6 Sodium Potassium Chloride Carbon Dioxide Anion Gap BUN Creatinine Estimated GFR (MDRD) Glucose Calcium Magnesium TSH PD MEDICAL DECISION MAKING - ED course Complexity details: reviewed results, re-evaluated patient, considered differential, d/w patient ED course: 45-year-old female with a history of palpitations, PSVT, presents to the emergency department with palpitations today. Patient was in sinus tachycardia with EMS. Sinus tachycardia upon arrival here. She took her metoprolol and slow down to normal sinus rhythm. No chest pain. No shortness of breath. Unclear etiology of her symptoms. We will have her follow-up with her doctor for further care. No evidence of PE or acute coronary syndrome. No indication for lab work at this time. Patient counseled regarding signs and symptoms for which I believe and urgent re-evaluation would be necessary. Patient with good understanding of and agreement to plan and is comfortable going home at this time This document was made in part using voice recognition software. While efforts are made to proofread this document, sound alike and grammatical errors may occur. Departure - Departure Disposition: 01 Home, Self Care Clinical Impression: Palpitations Condition: Good Instructions: ED Palpitations Follow-Up: your,doctor in 1 week [Other] Comments: Continue your current medications at home. Follow-up with your doctor for further care. Return if you worsen. Discharge Date/Time: 04/22/21 20:36
[2021-04-22 20:32] VITALS: BP 111/70
== END 2021-04-22 20:36 | disposition home or self-care (01) ==
LOC: EDBD → EDUNIT# → ED 18:02
DX: R00.2 Palpitations (principal); R00.0 Tachycardia, unspecified; I10 Essential (primary) hypertension; Z87.891 Personal history of nicotine dependence
CPT/HCPCS: 36415; 80048; 82803; 83735; 84443; 85025; 93005; 99284

== ENCOUNTER 2021-05-09 17:59 | Outpatient (CLI) | payer OTHER | END 2021-05-09 18:00 | disposition EMS.NT | LOC: EMS 17:59 | DX: R00.0 Tachycardia, unspecified (principal); R53.1 Weakness; R42 Dizziness and giddiness ==

== ENCOUNTER 2021-05-14 19:29 | Outpatient (CLI) | payer OTHER | END 2021-05-14 19:30 | disposition home or self-care (01) | LOC: SC 19:29 | PROVIDERS: ATTEND Nurse Practitioner Family | DX: G47.33 Obstructive sleep apnea (adult) (pediatric) (principal) | CPT/HCPCS: 95811 ==

== ENCOUNTER 2021-05-27 15:23 | Emergency (ER) | payer OTHER ==
[2021-05-27 16:01] LABS: BASOPHILS # (AUTO) 0.1 10^3/uL (0.0-0.1); BASOPHILS % (AUTO) 0.6 %; EOSINOPHILS # (AUTO) 0.1 10^3/uL (0.0-0.7); HCT - HEMATOCRIT 34.8 % (37.0-47.0); HGB - HEMOGLOBIN 11.1 g/dL (12.0-16.0); LYMPHOCYTES # (AUTO) 1.8 10^3/uL (1.5-3.5); LYMPHOCYTES % (AUTO) 22.3 %; MEAN CORPUSCULAR HEMOGLOBIN 26.8 pg (27.0-31.0); MEAN CORPUSCULAR HGB CONC 31.9 g/dL (32.0-36.0); MEAN CORPUSCULAR VOLUME 84.1 fL (81.0-99.0); MEAN PLATELET VOLUME 9.7 fL (7.9-10.8); MONOCYTES # (AUTO) 0.6 10^3/uL (0.0-1.0); MONOCYTES % (AUTO) 7.4 %; NEUTROPHILS # (AUTO) 5.4 10^3/uL (1.5-6.6); NEUTROPHILS % (AUTO) 68.4 %; PLT - PLATELET COUNT 407 10^3/uL (130-450); RED BLOOD COUNT 4.14 10^6/uL (4.20-5.40); RED CELL DISTRIBUTION WIDTH 13.2 % (12.0-15.0); WHITE BLOOD COUNT 7.9 x10^3/uL (4.8-10.8)
[2021-05-27] MEDS ORDERED: LORazepam 2 MG/ML VIAL IVP STA (16:02)
--- NOTE | 2021-05-27 16:09 | ED Physician Documentation ---
History of Present Illness - Stated complaint Stated Complaint: FEMALE , BACK PX - Chief complaint Chief Complaint: Abd Pain - History obtained from History obtained from: Patient - History of Present Illness Timing: Today, How many hours ago (2) Pain level max: 9 Pain level now: 5 - Additonal information Additional information: Patient is a 38-year-old female complains of left flank pain for the past 2 hours. Nothing makes it better or worse. Has not had similar symptoms previously. No vomiting. No fevers. No chills. No diarrhea. No constipation. No dysuria. Denies any possibility of . Review of Systems Constitutional: denies: Fever, Chills GI: denies: Vomiting : denies: Dysuria, Frequency, Hesitancy, Now EGA Skin: denies: Rash Musculoskeletal: denies: Neck pain, Back pain Neurologic: denies: Headache PD PAST MEDICAL HISTORY - Past Medical History Cardiovascular: Hypertension LMSW: Ovarian cysts, Fibroids Psych: Anxiety, Post traumatic stress disorder - Past Surgical History Past Surgical History: Yes /LMSW: Tubal ligation, LEEP (Cervical surgery) - Present Medications Home Medications: Ambulatory Orders Medication Instructions Recorded Confirmed Albuterol Sulfate [Proair Hfa 1 puffs INH Q4HR PRN 03/31/21 04/22/21 Inhaler] Fluticasone/Salmeterol [Advair Hfa 1 puffs INH DAILY 03/31/21 04/22/21 115-21 Mcg Inhaler] Metoprolol Tartrate [Lopressor] 25 mg PO BID 03/31/21 04/22/21 Pantoprazole [Protonix inj] 40 mg PO DAILY 03/31/21 04/22/21 clonazePAM [Clonazepam] 0.5 mg PO BID 03/31/21 04/22/21 Lipase/Protease/Amylase [Creon Dr 48,000 units PO DAILY 04/22/21 04/22/21 24,000 Units Capsule] Hyoscyamine Sulfate [Levsin-Sl] 0.125 mg SL Q6H PRN #30 tab 05/27/21 polyethylene glycoL 3350 [Miralax] 17 gm PO DAILY PRN #1 bottle 05/27/21 - Allergies Allergies/Adverse Reactions: Allergies Allergy/AdvReac Type Severity Reaction Status Date / Time aspirin Allergy Unknown Verified 05/27/21 15:27 diphenhydramine Allergy Anxiety Verified 05/27/21 15:27 [From Benadryl] fluticasone [From Flonase] Allergy Dizziness Verified 05/27/21 15:27 promethazine [From Phenergan] Allergy Anaphylaxis Verified 05/27/21 15:27 - Social History Does the pt smoke?: No Smoking Status: Former smoker Does the pt drink ETOH?: Yes Does the pt have substance abuse?: No - POLST Patient has POLST: No PD ED PE NORMAL - Vitals Vital signs reviewed: Yes - General General: Alert and oriented X 3, No acute distress - HEENT HEENT: Moist mucous membranes - Neck Neck: Supple, no meningeal sign - Cardiac Cardiac: RRR - Respiratory Respiratory: No respiratory distress, Clear bilaterally - Abdomen Abdomen: Soft, Non tender, Non distended - Back Back: No CVA TTP, No spinal TTP - Derm Derm: Warm and dry - Extremities Extremities: No edema - Neuro Neuro: Alert and oriented X 3 Results - Vitals Vitals: Vital Signs - 24 hr 05/27/21 05/27/21 05/27/21 15:27 15:31 18:06 Temperature 36.5 C 36.8 C Heart Rate 120 H 101 H 100 Respiratory 20 20 20 Rate Blood Pressure 150/100 H 119/78 119/85 H O2 Saturation 100 99 100 Oxygen O2 Source Room air - EKG (time done) 1537 Rate: Rate (enter#) (150) Rhythm: Sinus tachycardia [employer]: Normal Intervals: Normal [place] QRS: Normal Ischemia: Normal ST segments - Labs Labs: Laboratory Tests 05/27/21 05/27/21 05/27/21 15:50 15:50 16:20 WBC 7.9 RBC 4.14 L Hgb 11.1 L Hct 34.8 L MCV 84.1 MCH 26.8 L MCHC 31.9 L RDW 13.2 Plt Count 407 MPV 9.7 Neut # (Auto) 5.4 Lymph # (Auto) 1.8 [place] # (Auto) 0.6 Eos # (Auto) 0.1 Baso # (Auto) 0.1 Absolute Nucleated RBC 0.00 Nucleated RBC % 0.0 Sodium 140 Potassium 4.0 Chloride 104 Carbon Dioxide 24 Anion Gap 12.0 BUN 9 Creatinine 0.6 Estimated GFR (MDRD) 107 Glucose 111 H Calcium 9.4 Total Bilirubin 0.4 AST 19 ALT 19 Alkaline Phosphatase 73 Total Protein 8.0 Albumin 3.8 Globulin 4.2 Albumin/Globulin Ratio 0.9 L Lipase 19 L Urine Color YELLOW Urine Clarity CLEAR Urine pH 7.0 Ur Specific [place] 1.010 Urine Protein NEGATIVE Urine Glucose (UA) NEGATIVE Urine Ketones NEGATIVE Urine Occult Blood NEGATIVE Urine Nitrite NEGATIVE Urine Bilirubin NEGATIVE Urine Urobilinogen 0.2 (NORMAL) Ur Leukocyte Esterase NEGATIVE Ur Microscopic Review NOT INDICATED Urine Culture Comments NOT INDICATED Urine HCG, Qual 05/27/21 16:20 WBC RBC Hgb Hct MCV MCH MCHC RDW Plt Count MPV Neut # (Auto) Lymph # (Auto) [place] # (Auto) Eos # (Auto) Baso # (Auto) Absolute Nucleated RBC Nucleated RBC % Sodium Potassium Chloride Carbon Dioxide Anion Gap BUN Creatinine Estimated GFR (MDRD) Glucose Calcium Total Bilirubin AST ALT Alkaline Phosphatase Total Protein Albumin Globulin Albumin/Globulin Ratio Lipase Urine Color Urine Clarity Urine pH Ur Specific [place] Urine Protein Urine Glucose (UA) Urine Ketones Urine Occult Blood Urine Nitrite Urine Bilirubin Urine Urobilinogen Ur Leukocyte Esterase Ur Microscopic Review Urine Culture Comments Urine HCG, Qual NEGATIVE - Rads (name of study) CT abd/pelvis Radiology: Final report received, EMP read contemporaneously, See rad report PD MEDICAL DECISION MAKING - ED course Complexity details: reviewed results, re-evaluated patient, considered differential, d/w patient ED course: Is a 46-year-old female who presents to the emergency department left-sided abdominal pain. Appears to be constipated on CT scan. No other acute abnormalities. No significant lab abnormalities. Given magnesium citrate here. Given Bentyl as well. Will prescribe MiraLAX for home. We will have her follow-up with her doctor for further care. Patient is well-appearing, nontoxic. Afebrile. No vomiting. Patient counseled regarding signs and symptoms for which I believe and urgent re-evaluation would be necessary. Patient with good understanding of and agreement to plan and is comfortable going home at this time This document was made in part using voice recognition software. While efforts are made to proofread this document, sound alike and grammatical errors may occur. Negative for diverticulitis. There is a moderate amount of stool seen within the colon. Please correlate with clinical constipation. Incidental note is made of: Small hiatal hernia Accessory splenule Trace fat-containing periumbilical hernia Normal appendix Focal L5-S1 degenerative change Departure - Departure Disposition: Home, Self Care Clinical Impression: Constipation Qualifiers: Constipation type: unspecified constipation type Qualified Code(s): K59.00 - Constipation, unspecified Condition: Good Instructions: ED Constipation Follow-Up: Talia Almeida MD [Primary Care Provider] - Within 1 week Prescriptions: Hyoscyamine Sulfate [Levsin-Sl] 0.125 mg SL Q6H PRN #30 tab PRN Reason: Abdominal Pain polyethylene glycoL 3350 [Miralax] 17 gm PO DAILY PRN #1 bottle PRN Reason: Constipation Comments: Drink plenty of water. Follow-up with your doctor for further care. Your CT scan shows constipation today. There are no other significant abnormalities. Return if you worsen Your prescriptions were sent to the [facility] in [place] Discharge Date/Time: 05/27/21 18:00
[2021-05-27 16:13] LABS: ALBUMIN 3.8 g/dL (3.2-5.5); ALBUMIN/GLOBULIN RATIO 0.9 (1.0-2.2); BILIRUBIN,TOTAL 0.4 mg/dL (0.2-1.0); CALCIUM 9.4 mg/dL (8.5-10.3); CREATININE 0.6 mg/dL (0.4-1.0)
[2021-05-27] MEDS ORDERED: IOPAMIDOL-300 100 ML VIAL ONE (16:23)
[2021-05-27 16:28] LABS: BILIRUBIN,URINE NEGATIVE (NEGATIVE); GLUCOSE, URINE (UA) NEGATIVE (NEGATIVE); KETONES,URINE (UA) NEGATIVE (NEGATIVE); LEUKOCYTE ESTERASE, URINE NEGATIVE (NEGATIVE); NITRITE,URINE NEGATIVE (NEGATIVE); OCCULT BLOOD,URINE NEGATIVE (NEGATIVE); PROTEIN,URINE NEGATIVE (NEGATIVE); UROBILINOGEN,URINE 0.2 (NORMAL) E.U./dL (NORMAL)
[2021-05-27 16:30] LABS: CLARITY,URINE CLEAR (CLEAR)
[2021-05-27 17:10] LABS: HCG UR QUAL NEGATIVE
[2021-05-27] MEDS ORDERED: IOPAMIDOL-300 100 ML VIAL IVP ONE (17:14)
[2021-05-27] MEDS ORDERED: DICYCLOMINE 10 MG CAPSULE PO STA (17:18)
[2021-05-27] MEDS ORDERED: MAGNESIUM CITRATE 296 ML BOTTLE PO STA (17:18)
--- NOTE | 2021-05-27 17:21 | CT Report ---
PROCEDURE: Abdomen/Pelvis W INDICATIONS: L sided abd pain CONTRAST: IV CONTRAST: Isovue 300 ml: 100 PO CONTRAST: *NO PO CONTRAST TECHNIQUE: After the administration of IV contrast, 5 mm thick sections acquired from the diaphragms to the symp hysis. 5 mm thick coronal and sagittal reformats were acquired. For radiation dose reduction, the f ollowing was used: automated exposure control, adjustment of mA and/or kV according to patient size. COMPARISON: None. FINDINGS: Image quality: Excellent. ABDOMEN: Lung bases: Lung bases are clear. Heart size is normal. There is a small hiatal hernia seen. Solid organs: Liver and spleen are normal in size and enhancement. An accessory splenule is incide ntally noted along the hilum of the primary spleen. Gallbladder wall does not appear thickened. Biliary system is non dilated. Pancreas enhances normally. No adrenal nodules. Kidneys demonstrate normal size and enhancement, without hydronephrosis. Peritoneum and bowel: Bowel loops demonstrate normal wall thickness and caliber. No free fluid or a ir. A normal appendix is incidentally noted. There is a moderate amount of stool seen within the co noah. No significant sigmoid abnormality can be seen. No significant diverticulosis or diverticulitis. Nodes and vessels: No retroperitoneal or mesenteric adenopathy by size criteria. Aorta and inferior vena cava are normal in size. Miscellaneous: A trace fat-containing periumbilical hernia is seen. PELVIS: Genitourinary: Bladder wall thickness is normal. The uterus demonstrates an unremarkable appearance for age. No adnexal masses are seen. Miscellaneous: No inguinal hernias or adenopathy. Bones: No suspicious bony lesions. No vertebral body compression fractures. Focal L5-S1 degenerati ve change is seen. Milder degenerative changes are seen elsewhere. IMPRESSION: Negative for diverticulitis. There is a moderate amount of stool seen within the colon. Please correlate with clinical constipatio n. Incidental note is made of: Small hiatal hernia Accessory splenule Trace fat-containing periumbilical hernia Normal appendix Focal L5-S1 degenerative change Reviewed by: Nilesh Hood MD on 05/27/2021 4:20 PM AKLEXII Approved by: Nilesh Hood MD on 05/27/2021 4:20 PM AKDT Station ID: [id number]
[2021-05-27 18:07] VITALS: BP 119/85
== END 2021-05-27 18:00 | disposition home or self-care (01) ==
LOC: ED 15:23
DX: K59.00 Constipation, unspecified (principal); R00.0 Tachycardia, unspecified; I10 Essential (primary) hypertension; Z87.891 Personal history of nicotine dependence
CPT/HCPCS: 36415; 74177; 80053; 81003; 81025; 83690; 85025; 93005; 96374; 99283; 99284; A9270; J2060; Q9967; 81001; 87086

== ENCOUNTER 2021-06-07 15:28 | Outpatient (CLI) | payer OTHER ==
--- NOTE | 2021-06-07 16:07 | SLEEP CARE CONSULTATION ---
Information from patient questionnaire entered by Hanna Mathur. I have reviewed and concur with the information entered by Hanna Mathur. This document represents the service I personally performed and the decisions made by , Cristy Mendoza ARNP. History of Present Illness Service Date and Time: 06/07/2021 1528 Previous diagnosis: Mild, Obstructive Sleep Apnea-Hypopnea Syndrome AHI: 11.0 (in 2020) Reason for follow up: with manual titration, other (2 month) Equipment type: CPAP Equipment obtained from: Other ([employer]; 360pi) Mask style: Nasal Backup mask available: Yes (old mask) Last cushion change: 6 week Prior sleep studies: Yes Year and Where: 2020 - [facility] [place] Type of Sleep Study: Home sleep study HPI additional information: ISMA JIMENEZ returns with spouse for follow up of the sleep study with a manual CPAP titration study performed on 05-14-2021. Sleep Study - Results Type of Sleep Study: Polysomnography (Titration) Prior sleep studies: Yes Year and Where: 2020 - [facility] Polysomnography/Home Sleep Study results: IMPRESSION: The quality of the study is good. CPAP was initiated at 8 cmH2O and titrated up to CPAP at 10 cmH2O. None of the pressure settings appeared adequate during REM sleep. Oxygen saturation was minimally low. The patient appeared to have tolerated positive airway pressure therapy well. The patients sleep efficiency was slightly reduced three prolonged awakenings during the night. The sleep architecture was normal. There was no periodic leg movement of sleep. Cardiac rhythm was normal sinus rhythm without significant arrhythmia. No abnormal behavior (parasomnia) observed during the night. CONCLUSIONS and RECOMMENDATIONS: 1. Obstructive sleep apnea-hypopnea (ICD-10 G47.33), mild (AHI was 11.0), inadequately controlled with CPAP up to 10 cmH2O. CPAP therapy is, therefore, recommended at a higher setting to cover residual respiratory events that occur during REM sleep. AutoCPAP set between 8 and 12 cmH20 is recommended. Mask used was a ResMed AirTouch F-20 full face mask size small. With BMI of 42.6 Kg/M2, weight loss is also recommended. CPAP Compliance Data - Data Reviewed with Patient Average duration of nightly device use: 9 hr 6 min Compliance rate %: 100 Current pressure setting (cmH2O): 7-15 Humidity settin Heated hose settin Average residual AHI: 2.5 Average large leak: 18 sec Subjective Patient concerns: reports: aerophagia (improving with time), mask discomfort (some facial swelling, improving), nasal congestion, dry mouth, nose, throat, other (headache). denies: air blowing in eyes, mask leak noise, condensation in mask/hose, epistaxis Observed to snore while using device: No Current pressure setting perceived as: comfortable On therapy, patient: reports: more rested overall. denies: drowsiness while driving Initial Jackson Sleepiness Scale score: 7 (in 2020 ) Current Jackson Sleepiness Scale score: 4 Allergies and Home Medications Home medication list reviewed: Yes (steroids, stopped Multivitamin) Review of Systems Review of systems same as previous: No (Hyperthyroidism) Physical Exam Heart Rate: 78 O2 Saturation: 98 Height: 5 ft 1 in Weight: 234 lb Body Mass Index: 44.1 BMI Classification: Morbidly Obese Impression and Plan 1. Obstructive Sleep Apnea-Hypopnea Syndrome, mild, with good treatment compliance and good apnea control. Patient returns after a recent titration study which showed an inadequate control of her apneas when titrated up to 10 cmH2O. It would control until she had any residual respiratory events. Recommendation from Dr. Nava was for a spread with higher pressures to accommodate for any residual respiratory events. Patient is currently set at 7- 15 cmH2O with good apnea control. We will continue current pressure settings. Patient's apnea severity and rationale for treatment to reduce apnea, improve sleep quality and reduce cardiovascular and cerebrovascular events was reviewed. I also reviewed the benefit of consistent device use of CPAP for arrhythmia and mood disorder (PTSD). Patient was encouraged to lose weight for their overall health and to reduce apneas. * Continue auto CPAP pressure at 7-15 cmH2O * Notify me if snoring with mask or feeling that the pressure is too much or too little * Attempt to lose weight * Call this office if any problems using CPAP * Return for follow up in 3 months, or sooner if concerns arise Counseling Topics: Spare mask, Weight loss health impact Visit Type: In Office Time Spent with Patient (minutes): 24 Provider Statement: I spent 100% of the Face to Face Visit with the patient with greater than 50% spent counseling the patient and coordination of care.
== END 2021-06-07 15:29 | disposition home or self-care (01) ==
LOC: SC 15:28
PROVIDERS: ATTEND Nurse Practitioner Family
DX: G47.33 Obstructive sleep apnea (adult) (pediatric) (principal); E66.01 Morbid (severe) obesity due to excess calories; Z68.41 Body mass index [BMI] 40.0-44.9, adult
CPT/HCPCS: 99212; 99213

== ENCOUNTER 2021-06-07 16:34 | Emergency (ER) | payer OTHER ==
--- NOTE | 2021-06-07 17:49 | ED Physician Documentation ---
History of Present Illness - Stated complaint Stated Complaint: LOW HEART RATE - Chief complaint Chief Complaint: General - History obtained from History obtained from: Patient - Additonal information Additional information: Home monitor with HR 49/55 this AM. Asymptomatic. TSH last month <0.08. 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) - Present Medications Home Medications: Ambulatory Orders Medication Instructions Recorded Confirmed Albuterol Sulfate [Proair Hfa 1 puffs INH Q4HR PRN 03/31/21 04/22/21 Inhaler] Fluticasone/Salmeterol [Advair Hfa 1 puffs INH DAILY 03/31/21 04/22/21 115-21 Mcg Inhaler] Metoprolol Tartrate [Lopressor] 25 mg PO BID 03/31/21 04/22/21 Pantoprazole [Protonix inj] 40 mg PO DAILY 03/31/21 04/22/21 clonazePAM [Clonazepam] 0.5 mg PO BID 03/31/21 04/22/21 Lipase/Protease/Amylase [Creon Dr 48,000 units PO DAILY 04/22/21 04/22/21 24,000 Units Capsule] Hyoscyamine Sulfate [Levsin-Sl] 0.125 mg SL Q6H PRN #30 tab 05/27/21 polyethylene glycoL 3350 [Miralax] 17 gm PO DAILY PRN #1 bottle 05/27/21 - Allergies Allergies/Adverse Reactions: Allergies Allergy/AdvReac Type Severity Reaction Status Date / Time aspirin Allergy Unknown Verified 05/27/21 15:27 diphenhydramine Allergy Anxiety Verified 05/27/21 15:27 [From Benadryl] fluticasone [From Flonase] Allergy Dizziness Verified 05/27/21 15:27 promethazine [From Phenergan] Allergy Anaphylaxis Verified 05/27/21 15:27 - Social History Does the pt smoke?: No Smoking Status: Never smoker Does the pt drink ETOH?: Yes Does the pt have substance abuse?: No - POLST Patient has POLST: No PD ED PE NORMAL - Vitals Vital signs reviewed: Yes - General General: Alert and oriented X 3, No acute distress - HEENT HEENT: PERRL, EOMI - Neck Neck: Supple, no meningeal sign, No bony TTP Results - Vitals Vitals: Vital Signs - 24 hr 06/07/21 06/07/21 06/07/21 16:38 17:07 18:54 Temperature 37.1 C Heart Rate 85 84 63 Respiratory 16 16 Rate Blood Pressure 143/88 H 125/75 O2 Saturation 100 100 Oxygen O2 Source Room air - EKG (time done) 1701 Rate: Rate (enter#) (84) Rhythm: NSR [place]: Normal Intervals: Normal [place] QRS: Normal Ischemia: Normal ST segments - Labs Labs: Laboratory Tests 06/07/21 06/07/21 17:54 17:54 Sodium 139 Potassium 3.4 L Chloride 101 Carbon Dioxide 25 Anion Gap 13.0 BUN 7 Creatinine 0.7 Estimated GFR (MDRD) 89 Glucose 89 Calcium 9.0 TSH 0.30 L PD MEDICAL DECISION MAKING - ED course ED course: 46-year-old woman with asymptomatic bradycardia. Given the numbers probably no change is necessary. Departure - Departure Disposition: 01 Home, Self Care Clinical Impression: Bradycardia, Hyperthyroidism Condition: Good Record reviewed to determine appropriate education?: Yes Instructions: Hyperthyroidism Dc Comments: Followup with your doctor as scheduled for further thyroid testing. Return if worse, for HR <40, or new symptoms. Discharge Date/Time: 06/07/21 18:54
[2021-06-07 18:12] LABS: CREATININE 0.7 mg/dL (0.4-1.0); POTASSIUM 3.4 mmol/L (3.5-5.0)
[2021-06-07 19:22] VITALS: BP 125/75
== END 2021-06-07 18:54 | disposition home or self-care (01) ==
LOC: ED 16:34
DX: R00.1 Bradycardia, unspecified (principal); E05.90 Thyrotoxicosis, unspecified without thyrotoxic crisis or storm
CPT/HCPCS: 36415; 80048; 84443; 93005; 99283

== ENCOUNTER 2021-07-29 10:12 | Outpatient (CLI) | payer OTHER ==
--- NOTE | 2021-07-30 17:04 | Nuclear Medicine Report ---
PROCEDURE: Thyroid Imaging and Uptake INDICATIONS: THYROTOXICOSIS RADIOPHARMACEUTICAL: 370 Ci I-123 sodium iodide by mouth. TECHNIQUE: I-123 sodium iodide was administered orally. Anterior neck images were obtained, and iodine uptake b y the thyroid gland calculated using surgery specialist's software. COMPARISON: None available. FINDINGS: Morphology: The thyroid gland has normal morphology and uniform activity. No cold' or hot' thyroi d nodules are identified. Uptake: 6 hour thyroid uptake is 11.6%; normal ranges are from 6-18%. 24 hour thyroid uptake is 27. 1%; normal ranges are from 10-30%. IMPRESSION: Thyroid uptake is within normal limits. Reviewed by: Cecilia Carrasquillo MD on 07/30/2021 5:03 PM PST Approved by: Cecilia Carrasquillo MD on 07/30/2021 5:03 PM PST Station ID: [id number]
== END 2021-07-29 10:13 | disposition home or self-care (01) ==
LOC: DI 10:12
PROVIDERS: ATTEND Internal Medicine
DX: E05.90 Thyrotoxicosis, unspecified without thyrotoxic crisis or storm (principal)
CPT/HCPCS: 78014; A9509

== ENCOUNTER 2021-09-05 16:39 | Outpatient (CLI) | payer OTHER ==
[2021-09-05 17:36] VITALS: BP 120/85
--- NOTE | 2021-09-05 17:36 | SLEEP CARE CONSULTATION ---
Information from patient questionnaire entered by Boyd Asif MA. I have reviewed and concur with the information entered by Boyd Asif MA. This document represents the service I personally performed and the decisions made by , Cristy Mendoza ARNP. History of Present Illness Service Date and Time: 09/05/2021 1639 Previous diagnosis: Mild, Obstructive Sleep Apnea-Hypopnea Syndrome AHI: 11.0 (in 2020) Reason for follow up: three month (3 MONTH F/U) Equipment type: CPAP Equipment obtained from: Other ([email or web address]; Prelertaner Resmed since end april) Mask style: Nasal Backup mask available: No (unsure) Prior sleep studies: Yes Year and Where: 2020 - [facility] Type of Sleep Study: Polysomnography HPI additional information: ISMA JIMENEZ was diagnosed to have mild, AHI 11.0, obstructive sleep apnea- hypopnea syndrome and returned today with daughter in law for CPAP therapy three month follow-up. Sleep Study - Results Type of Sleep Study: Polysomnography Prior sleep studies: Yes Year and Where: 2020 - [facility] CPAP Compliance Data - Data Reviewed with Patient Current pressure setting (cmH2O): 7-15 Average large leak: 1 MINUTES 54 SECONDS Compliance data discussion: Patient received a loaner ResMed machine from [facility] around the beginning of May. She does not like it as well because where the hose connects to the machine causes the headgear to pull on her hair. She has registered her Dreamstation. I was able to see her MyAir results showing 90s for her most of the time. She wears her CPAP mask every night. I will have her bring in her loaner machine so we can get a download of her compliance report. Subjective Patient concerns: reports: aerophagia, mask discomfort, nasal congestion, dry mouth, nose, throat, other (headache, lung discomfort, gasping, falls off). denies: air blowing in eyes, mask leak noise, condensation in mask/hose, epistaxis (3) Observed to snore while using device: No Current pressure setting perceived as: comfortable On therapy, patient: reports: sleeping better, awakening more refreshed, being more awake and alert during the day, more rested overall. denies: drowsiness while driving Initial [place] Sleepiness Scale score: 7 (in 2020 ) Current [place] Sleepiness Scale score: 5 Allergies and Home Medications Home medication list reviewed: Yes (Iron infusions x 3, 1 remaining) Review of Systems Review of systems same as previous: No (Anemia; otherwise pending) Physical Exam Vital signs obtained and entered by: JESS HYLTON Blood Pressure: 120/85 (LEFT) Cuff size: wrist Heart Rate: 97 O2 Saturation: 98 (WITH MASK) Height: 5 ft 1 in Weight: 235 lb (WITH CLOTHES) Body Mass Index: 44.4 BMI Classification: Morbidly Obese Impression and Plan 1. Obstructive Sleep Apnea-Hypopnea Syndrome, mild, with unknown treatment compliance and unknown apnea control. On CPAP therapy, the patient has better sleep quality and is more rested overall. She will have to bring in her device so we can get a download of her compliance information. I can see from the information on her Paice application that she is compliant and has good apnea control. Patient does not like the loaner device she is using, it is a ResMed. She wants her Dreamstation back. I advised her to call [facility] to check on her replacement device for the recall. She voiced understanding. She has continue to have dry mouth. She states the water chamber will be dry most mornings and her mouth is dry. Her humidity is set at 3. I advised her to use a humidifier in her sleeping room to increase the ambient humidity which may help with the dryness. She has also been having some bloating feeling with increased gas in the morning. She does not want me to adjust her pressures. I advised her to monitor how often this is happening and see if we can note if the pressure are going to high or she is swallowing the air on her own. She voiced understanding and agreement. Patient's apnea severity and rationale for treatment to reduce apnea, improve sleep quality and reduce cardiovascular and cerebrovascular events was reviewed. I also reviewed the benefit of consistent device use of CPAP for arrhythmia and mood disorder (PTSD). * Continue auto CPAP pressure at 7-15 cmH2O * Notify me if snoring with mask or feeling that the pressure is too much or too little * Attempt to lose weight * Call this office if any problems using CPAP * Return for follow up in 6 months, or sooner if concerns arise Counseling Topics: Spare mask, Weight loss health impact Visit Type: In Office Time Spent with Patient (minutes): 35 Provider Statement: I spent 100% of the Face to Face Visit with the patient with greater than 50% spent counseling the patient and coordination of care.
== END 2021-09-05 16:40 | disposition home or self-care (01) ==
LOC: SC 16:39
PROVIDERS: ATTEND Nurse Practitioner Family
DX: G47.33 Obstructive sleep apnea (adult) (pediatric) (principal); E66.01 Morbid (severe) obesity due to excess calories; Z68.41 Body mass index [BMI] 40.0-44.9, adult
CPT/HCPCS: 99212; 99214

== ENCOUNTER 2021-09-18 16:33 | Outpatient (CLI) | payer OTHER ==
--- NOTE | 2021-09-19 09:33 | XRAY Report ---
PROCEDURE: Foot 3 View LT INDICATIONS: L FOOT PX TECHNIQUE: 3 views of the foot were acquired. COMPARISON: None. FINDINGS: Bones: No acute fractures or dislocations. No suspicious bony lesions. A small ossification dorsal to the talonavicular joint may be related to degenerative changes or prior trauma. Soft tissues: No suspicious soft tissue calcification. Mild soft tissue edema in the forefoot. IMPRESSION: No acute osseous abnormality. If there is clinical concern or persistent symptoms, additional imaging such as repeat radiographs or advanced imaging (e.g. CT, MRI) may be helpful for further evaluation. Reviewed by: John Ramos MD on 09/19/2021 9:32 AM [facility] Approved by: John Ramos MD on 09/19/2021 9:32 AM [facility] Station ID: [id number]
== END 2021-09-18 23:59 | disposition home or self-care (01) ==
LOC: DI.N 16:33
PROVIDERS: ATTEND Family Medicine
DX: M79.672 Pain in left foot (principal)

== ENCOUNTER 2021-09-26 06:50 | Outpatient (CLI) | payer OTHER | END 2021-09-26 06:51 | disposition EMS.NT | LOC: EMS 06:50 | DX: U07.1 COVID-19 (principal); F41.9 Anxiety disorder, unspecified ==

== ENCOUNTER 2021-11-03 04:12 | Outpatient (CLI) | payer OTHER | END 2021-11-03 04:13 | disposition EMS.NT | LOC: EMS 04:12 | DX: F41.9 Anxiety disorder, unspecified (principal) ==

== ENCOUNTER 2022-01-27 15:43 | Emergency (ER) | payer OTHER ==
--- NOTE | 2022-01-27 16:22 | ED Physician Documentation ---
History of Present Illness - Stated complaint Stated Complaint: SOA,CONGESTION,COUGH - Chief complaint Chief Complaint: Resp - History obtained from History obtained from: Patient - History of Present Illness Timing: How many days ago (2-3) Pain level max: 0 Pain level now: 0 - Additonal information Additional information: 46-year-old female history of emphysema, lobectomy, COPD, asthma and lung cancer, now in remission presents with reports of fever, cough, congestion, sore throat and body ache x2 days. Nothing seems to make it better or worse. She did have COVID about 4 months ago. Review of Systems Ten Systems: 10 systems reviewed and negative Constitutional: reports: Fever (Subjective). denies: Chills Ears: denies: Ear pain Nose: reports: Rhinorrhea / runny nose (Green) Throat: denies: Sore throat Cardiac: denies: Chest pain / pressure Respiratory: reports: Cough (Yellow/green sputum), Wheezing (Occasional wheezing). 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 cysts, Fibroids : None HEENT: None Psych: Anxiety, Post traumatic stress disorder Musculoskeletal: None Derm: None - Past Surgical History Past Surgical History: Yes /PICKERS MATERIAL HANDLERS: Tubal ligation, LEEP (Cervical surgery) - Present Medications Home Medications: Ambulatory Orders Medication Instructions Recorded Confirmed Albuterol Sulfate [Proair Hfa 1 puffs INH Q4HR PRN 03/31/21 04/22/21 Inhaler] Fluticasone/Salmeterol [Advair Hfa 1 puffs INH DAILY 03/31/21 04/22/21 115-21 Mcg Inhaler] Metoprolol Tartrate [Lopressor] 25 mg PO BID 03/31/21 04/22/21 Pantoprazole [Protonix inj] 40 mg PO DAILY 03/31/21 04/22/21 clonazePAM [Clonazepam] 0.5 mg PO BID 03/31/21 04/22/21 Lipase/Protease/Amylase [Creon Dr 48,000 units PO DAILY 04/22/21 04/22/21 24,000 Units Capsule] Hyoscyamine Sulfate [Levsin-Sl] 0.125 mg SL Q6H PRN #30 tab 05/27/21 polyethylene glycoL 3350 [Miralax] 17 gm PO DAILY PRN #1 bottle 05/27/21 - Allergies Allergies/Adverse Reactions: Allergies Allergy/AdvReac Type Severity Reaction Status Date / Time aspirin Allergy Unknown Verified 01/27/22 15:52 diphenhydramine Allergy Anxiety Verified 01/27/22 15:52 [From Benadryl] fluticasone [From Flonase] Allergy Dizziness Verified 01/27/22 15:52 promethazine [From Phenergan] Allergy Anaphylaxis Verified 01/27/22 15:52 shellfish derived Allergy Unknown Verified 01/27/22 15:52 - Social History Does the pt smoke?: No Smoking Status: Never smoker Does the pt drink ETOH?: Yes Does the pt have substance abuse?: No - POLST Patient has POLST: No PD ED PE NORMAL - Vitals Vital signs reviewed: Yes - General General: Alert and oriented X 3, No acute distress - HEENT HEENT: PERRL, Moist mucous membranes - Neck Neck: Supple, no meningeal sign - Cardiac Cardiac: RRR, Strong equal pulses - Respiratory Respiratory: No respiratory distress, Clear bilaterally - Abdomen Abdomen: Soft, Non tender, Non distended - Derm Derm: Warm and dry, No rash - Extremities Extremities: No edema - Neuro Neuro: Alert and oriented X 3 - Psych Psych: Normal mood, Normal affect Results - Vitals Vitals: Vital Signs - 24 hr 01/27/22 01/27/22 15:48 17:03 Temperature 37.3 C Heart Rate 102 H 86 Respiratory 20 16 Rate Blood Pressure 137/85 H 103/67 O2 Saturation 100 98 Oxygen O2 Source Room air - Labs Labs: Laboratory Tests 01/27/22 16:00 Nasal Adenovirus (PCR) NOT DETECTED Nasal B. parapertussis DNA (PCR) NOT DETECTED Nasal Coronavir 229E PCR NOT DETECTED Nasal Coronavir HKU1 PCR NOT DETECTED Nasal Coronavir NL63 PCR NOT DETECTED Nasal Coronavir OC43 PCR NOT DETECTED Nasal Enterovir/Rhinovir PCR NOT DETECTED Nasal Influenza B PCR NOT DETECTED Nasal Influenza A PCR NOT DETECTED Nasal Parainfluen 1 PCR NOT DETECTED Nasal Parainfluen 2 PCR NOT DETECTED Nasal Parainfluen 3 PCR NOT DETECTED Nasal Parainfluen 4 PCR NOT DETECTED Nasal RSV (PCR) NOT DETECTED Nasal B.pertussis DNA PCR NOT DETECTED Nasal C.pneumoniae (PCR) NOT DETECTED Jan Human Metapneumo PCR NOT DETECTED Nasal M.pneumoniae (PCR) NOT DETECTED Nasal SARS-CoV-2 (PCR) NOT DETECTED - Rads (name of study) Chest x-ray Radiology: Final report received, EMP read contemporaneously, See rad report PD MEDICAL DECISION MAKING - ED course Complexity details: reviewed results, re-evaluated patient, considered differential, d/w patient ED course: 46-year-old female, well-appearing, nontoxic. No acute abnormalities on chest x-ray. No hypoxia. No respiratory distress. PCR is negative for influenza and COVID. No indication for antibiotics. We will continue supportive care and have her follow-up with her doctor. Patient also states that she recently had an injury to her right thumb from a ling calligraphy pen. She is requesting a tetanus shot. This was done. Patient counseled regarding signs and symptoms for which I believe and urgent re-evaluation would be necessary. Patient with good understanding of and agreement to plan and is comfortable going home at this time This document was made in part using voice recognition software. While efforts are made to proofread this document, sound alike and grammatical errors may occur. Departure - Departure Disposition: 01 Home, Self Care Clinical Impression: Viral URI Condition: Good Instructions: ED Viral Syndrome Follow-Up: Your,doctor in 1 week [Other] Comments: Thankfully your x-ray does not show any pneumonia today. Drink plenty of fluids and rest. Return if you worsen. There is no indication for antibiotics at this time. Continue your current medications at home. Your COVID test and influenza tests are negative as well. You were given a Tdap shot today. I would encourage you to still receive your COVID vaccinations
--- NOTE | 2022-01-27 16:42 | XRAY Report ---
PROCEDURE: Chest 2 View X-Ray INDICATIONS: cough, fever TECHNIQUE: 2 view(s) of the chest. COMPARISON: Chest x-ray 04/10/2020 FINDINGS: Surgical changes and devices: None. Lungs and pleura: No pleural effusions or pneumothorax. Lungs are clear. Mediastinum: Mediastinal contours are normal. Heart size is normal. Bones and chest wall: No suspicious bony abnormalities. Soft tissues appear unremarkable. IMPRESSION: No acute pulmonary process. Reviewed by: Cecilia Carrasquillo MD on 01/27/2022 4:40 PM PDT Approved by: Cecilia Carrasquillo MD on 01/27/2022 4:40 PM PDT Station ID: [id number]
[2022-01-27 17:04] VITALS: BP 103/67
[2022-01-27 17:04] LABS: B. PARAPERTUSSIS- RESP PCR PAN NOT DETECTED; B. PERTUSSIS- RESP PCR PANEL NOT DETECTED; C. PNEUMONIAE- RESP PCR PANEL NOT DETECTED; CORONAVIRUS 229E-RESP PCR NOT DETECTED; CORONAVIRUS HKU1-RESP PCR NOT DETECTED; CORONAVIRUS NL63-RESP PCR NOT DETECTED; CORONAVIRUS OC43-RESP PCR NOT DETECTED; HUMAN METAPNEUMOVIRUS NOT DETECTED; INFLUENZA A- RESP PCR PANEL NOT DETECTED; INFLUENZA B - RESP PCR PANEL NOT DETECTED; M. PNEUMONIAE- RESP PCR PANEL NOT DETECTED; PARAINFLUENZA VIRUS 1 NOT DETECTED; PARAINFLUENZA VIRUS 2 NOT DETECTED; PARAINFLUENZA VIRUS 3 NOT DETECTED; PARAINFLUENZA VIRUS 4 NOT DETECTED; RHINOVIRUS/ENTEROVIRUS NOT DETECTED; RSV- RESP PCR PANEL NOT DETECTED; SARS-CoV-2 -RESP PCR PANEL NOT DETECTED
[2022-01-27] MEDS ORDERED: TETANUS/DIPHTHERIA/PERTUSSIS 0.5 ML SYRINGE IM ONE (17:14)
== END 2022-01-27 17:39 | disposition home or self-care (01) ==
LOC: ED 15:43
DX: J06.9 Acute upper respiratory infection, unspecified (principal); Z20.822 Contact with and (suspected) exposure to COVID-19; I10 Essential (primary) hypertension; Z23 Encounter for immunization; Z71.85 Encounter for immunization safety counseling
CPT/HCPCS: 87633; 90471; 99282; 99284

== ENCOUNTER 2022-03-23 13:18 | Emergency (ER) | payer OTHER ==
[2022-03-23 14:01] LABS: BASOPHILS % (AUTO) 0.8 %; EOSINOPHILS # (AUTO) 0.1 10^3/uL (0.0-0.7); EOSINOPHILS % (AUTO) 2.1 %; HCT - HEMATOCRIT 37.2 % (37.0-47.0); HGB - HEMOGLOBIN 12.6 g/dL (12.0-16.0); LYMPHOCYTES # (AUTO) 0.9 10^3/uL (1.5-3.5); LYMPHOCYTES % (AUTO) 19.9 %; MEAN CORPUSCULAR HEMOGLOBIN 30.1 pg (27.0-31.0); MEAN CORPUSCULAR HGB CONC 33.9 g/dL (32.0-36.0); MONOCYTES # (AUTO) 0.4 10^3/uL (0.0-1.0); MONOCYTES % (AUTO) 8.9 %; NEUTROPHILS # (AUTO) 3.2 10^3/uL (1.5-6.6); NEUTROPHILS % (AUTO) 68.1 %; PLT - PLATELET COUNT 273 10^3/uL (130-450); RED BLOOD COUNT 4.18 10^6/uL (4.20-5.40); RED CELL DISTRIBUTION WIDTH 13.1 % (12.0-15.0); WHITE BLOOD COUNT 4.7 x10^3/uL (4.8-10.8)
[2022-03-23 14:15] LABS: ALBUMIN 4.2 g/dL (3.2-5.5); ALBUMIN/GLOBULIN RATIO 1.4 (1.0-2.2); BILIRUBIN,TOTAL 0.3 mg/dL (0.2-1.0); CALCIUM 9.3 mg/dL (8.5-10.3); CREATININE 0.8 mg/dL (0.4-1.0); POTASSIUM 4.2 mmol/L (3.5-5.0); TOTAL PROTEIN 7.3 g/dL (6.7-8.2)
--- NOTE | 2022-03-23 14:18 | XRAY Report ---
PROCEDURE: Chest 1 View X-Ray INDICATIONS: Chest pain TECHNIQUE: One view of the chest was acquired. COMPARISON: 01/27/2022. 04/10/2020. FINDINGS: Surgical changes and devices: None. Lungs and pleura: No pleural effusions or pneumothorax. There is an opacity in the right lower lo be adjacent to the diaphragm unchanged compared to the prior x-ray and consistent with vasculature. Mediastinum: Mediastinal contours appear normal. Heart size is normal. Bones and chest wall: No suspicious bony lesions. Overlying soft tissues appear unremarkable. IMPRESSION: No acute abnormality of the chest. Reviewed by: Tito Servin on 03/23/2022 1:17 PM [facility] Approved by: Tito Servin on 03/23/2022 1:17 PM [facility] Station ID: [id number]
--- NOTE | 2022-03-23 15:37 | ED Physician Documentation ---
History of Present Illness - Stated complaint Stated Complaint: HEART RACING/FEVER - Chief complaint Chief Complaint: Cardiac - History obtained from History obtained from: Patient - Additonal information Additional information: The patient comes to the emergency department chief complaint of palpitations and itching around her injection site after getting her first COVID-vaccine 3 days ago. She states she had a "low-grade fever", which she reports was 99.7 yesterday. She states that she has had occasional episodes where she feels as though her heart is racing, though when she checks her heart rate, it is generally in the 90s though occasionally has been as high as around 110. She states episodes only last for couple of minutes and then subside, and that often some hours a lapse in between episodes. Her last episode was this morning.The patient states that she has not had any other symptoms like shortness of breath, cough, nausea, chest pain, or lightheadedness. No abdominal pain. She states that she has noticed some redness, swelling, and itching around the injection site on her right arm. No drainage. The patient is actually had COVID previously. No other complaints at this time. Review of Systems Ten Systems: 10 systems reviewed and negative Constitutional: reports: Reviewed and negative Eyes: reports: Reviewed and negative Ears: reports: Reviewed and negative Nose: reports: Reviewed and negative Throat: reports: Reviewed and negative Cardiac: reports: Palpitations Respiratory: reports: Reviewed and negative GI: reports: Reviewed and negative : reports: Reviewed and negative Skin: reports: Other (Erythema, Itching) Musculoskeletal: reports: Reviewed and negative Neurologic: reports: Reviewed and negative Psychiatric: reports: Reviewed and negative Endocrine: reports: Reviewed and negative Immunocompromised: reports: Reviewed and negative PD PAST MEDICAL HISTORY - Past Medical History Past Medical History: Yes Cardiovascular: Hypertension Respiratory: None Neuro: None Endocrine/Autoimmune: HyPERthyroidism GI: None 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, 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 : None HEENT: None Psych: Anxiety, Post traumatic stress disorder Musculoskeletal: None Derm: None - Past Surgical History Past Surgical History: Yes /FIRE CONTROL ASSISTANT: Tubal ligation, LEEP (Cervical surgery) Cardiovascular: Lobectomy - Present Medications Home Medications: Ambulatory Orders Medication Instructions Recorded Confirmed Albuterol Sulfate [Proair Hfa 1 puffs INH Q4HR PRN 03/31/21 04/22/21 Inhaler] Fluticasone/Salmeterol [Advair Hfa 1 puffs INH DAILY 03/31/21 04/22/21 115-21 Mcg Inhaler] Metoprolol Tartrate [Lopressor] 25 mg PO BID 03/31/21 04/22/21 Pantoprazole [Protonix inj] 40 mg PO DAILY 03/31/21 04/22/21 clonazePAM [Clonazepam] 0.5 mg PO BID 03/31/21 04/22/21 Lipase/Protease/Amylase [Creon Dr 48,000 units PO DAILY 04/22/21 04/22/21 24,000 Units Capsule] Hyoscyamine Sulfate [Levsin-Sl] 0.125 mg SL Q6H PRN #30 tab 05/27/21 polyethylene glycoL 3350 [Miralax] 17 gm PO DAILY PRN #1 bottle 05/27/21 - Allergies Allergies/Adverse Reactions: Allergies Allergy/AdvReac Type Severity Reaction Status Date / Time adhesive Allergy Unknown Verified 03/23/22 13:37 aspirin Allergy Unknown Verified 01/27/22 15:52 diphenhydramine Allergy Anxiety Verified 01/27/22 15:52 [From Benadryl] fluticasone [From Flonase] Allergy Dizziness Verified 01/27/22 15:52 promethazine [From Phenergan] Allergy Anaphylaxis Verified 01/27/22 15:52 shellfish derived Allergy Unknown Verified 01/27/22 15:52 - Social History Does the pt smoke?: No Smoking Status: Never smoker Does the pt drink ETOH?: Yes Does the pt have substance abuse?: No - POLST Patient has POLST: No PD ED PE NORMAL - Vitals Vital signs reviewed: Yes - General General: Alert and oriented X 3, No acute distress, Well developed/nourished - HEENT HEENT: Atraumatic, PERRL, EOMI, Moist mucous membranes - Neck Neck: Supple, no meningeal sign - Cardiac Cardiac: RRR, No murmur, Strong equal pulses - Respiratory Respiratory: No respiratory distress, Clear bilaterally - Abdomen Abdomen: Soft, Non tender, Non distended - Derm Derm: Warm and dry, Other (Localized pinkish erythema in approximately a 5 cm diameter area surrounding injection site on right upper arm. No fluctuance, and no induration outside of immediate site of injection. No streaking. No tendern ess) - Extremities Extremities: No deformity - Neuro Neuro: Alert and oriented X 3 - Psych Psych: Normal mood, Normal affect Results - Vitals Vitals: Vital Signs - 24 hr 03/23/22 03/23/22 03/23/22 13:29 14:20 14:21 Temperature 37.5 C Heart Rate 94 80 79 Respiratory 18 10 L 11 L Rate Blood Pressure 133/92 H 134/101 H 134/101 H O2 Saturation 97 100 96 03/23/22 03/23/22 14:50 15:03 Temperature Heart Rate 71 79 Respiratory 10 L 11 L Rate Blood Pressure 125/77 114/74 O2 Saturation 96 97 Oxygen O2 Source Room air - EKG (time done) 1331 Rate: Rate (enter#) (103) Rhythm: Sinus tachycardia Rewey: Normal Intervals: Normal SC QRS: Normal Ischemia: Normal ST segments Compare to prior EKG: Old EKG unavailable Computer interpretation: Agree with computer - Labs Labs: Laboratory Tests 03/23/22 03/23/22 03/23/22 13:55 13:55 13:55 WBC 4.7 L RBC 4.18 L Hgb 12.6 Hct 37.2 MCV 89.0 MCH 30.1 MCHC 33.9 RDW 13.1 Plt Count 273 MPV 10.0 Neut # (Auto) 3.2 Lymph # (Auto) 0.9 L [place] # (Auto) 0.4 Eos # (Auto) 0.1 Baso # (Auto) 0.0 Absolute Nucleated RBC 0.00 Nucleated RBC % 0.0 Sodium 139 Potassium 4.2 Chloride 104 Carbon Dioxide 27 Anion Gap 8.0 BUN 10 Creatinine 0.8 Estimated GFR (MDRD) 77 L Glucose 102 H Calcium 9.3 Total Bilirubin 0.3 AST 19 ALT 17 Alkaline Phosphatase 69 Troponin I High Sens 2.9 Total Protein 7.3 Albumin 4.2 Globulin 3.1 Albumin/Globulin Ratio 1.4 Lipase 22 PD MEDICAL DECISION MAKING - ED course Complexity details: reviewed results, re-evaluated patient, considered differential, d/w patient ED course: The patient overall appeared very well and on the monitor, And had a normal sinus rhythm in the 60s to 70s throughout her stay in the emergency department. Her labs were unremarkable. I discussed with the patient that I do not find any emergent cause of her symptoms. We have discussed that if the patient continues to have the sensation of palpitations from time to time for more than the next couple weeks, she should talk to her primary care physician. Departure - Departure Disposition: 01 Home, Self Care Clinical Impression: Palpitations with regular cardiac rhythm Local reaction to immunization Qualifiers: Encounter type: initial encounter Qualified Code(s): T88.1XXA - Other complications following immunization, not elsewhere classified, initial encou nter Condition: Stable Instructions: ED Allergic Reaction Local Other, ED Palpitations Comments: There does not appear to be an infection around your injection site at this time. With itching, it is most consistent with a localized reaction. Should be expected to go down in the next couple of days. Your heart rate and rhythm have been completely normal in the emergency department. The symptoms you are describing are not emergent in nature, though if they continue for more than the next few weeks, you should talk to your doctor about whether an event monitor would be appropriate.
[2022-03-23 15:40] VITALS: BP 107/67
== END 2022-03-23 15:43 | disposition home or self-care (01) ==
LOC: ED 13:18
DX: R00.2 Palpitations (principal); T88.1XXA Other complications following immunization, not elsewhere classified, initial encounter
CPT/HCPCS: 36415; 80053; 83690; 84484; 85025; 93005; 99282; 99284

== ENCOUNTER 2022-04-15 06:12 | Outpatient (CLI) | payer OTHER | END 2022-04-15 06:13 | disposition EMS.NT | LOC: EMS 06:12 | DX: R00.2 Palpitations (principal); R20.2 Paresthesia of skin; R42 Dizziness and giddiness; R00.0 Tachycardia, unspecified; F41.9 Anxiety disorder, unspecified ==

== ENCOUNTER 2022-04-16 16:08 | Outpatient (CLI) | payer OTHER | END 2022-04-16 16:09 | disposition left against medical advice (07) | LOC: EMS 16:08 | DX: R07.89 Other chest pain (principal); F41.9 Anxiety disorder, unspecified ==

== ENCOUNTER 2022-05-16 02:54 | Outpatient (CLI) | payer OTHER | END 2022-05-16 02:55 | disposition critical access hospital (66) | LOC: EMS 02:54 | DX: R00.2 Palpitations (principal); R50.9 Fever, unspecified; R22.32 Localized swelling, mass and lump, left upper limb | CPT/HCPCS: A0425; A0429 ==

== ENCOUNTER 2022-05-30 19:25 | Emergency (ER) | payer OTHER ==
[2022-05-30] MEDS ORDERED: METOCLOPRAMIDE 10 MG/2 ML VIAL IVP STA (21:29)
[2022-05-30] MEDS ORDERED: KETOROLAC 15 MG/ML VIAL IVP STA (21:29)
--- NOTE | 2022-05-30 21:30 | ED Physician Documentation ---
PD HPI ABD PAIN - Stated complaint Stated Complaint: HEADACHE/NAUSEA - Chief complaint Chief Complaint: Abd Pain - History obtained from History obtained from: Patient - Additional information Additional information: 47-year-old woman with history of migraines presents for the evaluation of 2 issues. She had sharp abdominal pain after eating today. She thinks it is her gallbladder. She actually had a HIDA scan yesterday showing likely chronic cholecystitis. Also she has had a typical migraine starting at 11 AM today and gradually worsening over the next 5 to 6 hours. It is associate with nausea but no vomiting. She has been light sensitive. No fevers. No neck stiffness. 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 : None HEENT: None Psych: Anxiety, Post traumatic stress disorder Musculoskeletal: None Derm: None - Past Surgical History Past Surgical History: Yes /STATION ENGINEER: Tubal ligation, LEEP (Cervical surgery) Cardiovascular: Lobectomy - Present Medications Home Medications: Ambulatory Orders Medication Instructions Recorded Confirmed Metoprolol Tartrate [Lopressor] 25 mg PO BID 03/31/21 05/13/22 Pantoprazole [Protonix inj] 40 mg PO DAILY 03/31/21 05/13/22 clonazePAM [Clonazepam] 0.5 mg PO TID 03/31/21 05/13/22 polyethylene glycoL 3350 [Miralax] 17 gm PO DAILY PRN #1 bottle 05/27/21 05/13/22 - Allergies Allergies/Adverse Reactions: Allergies Allergy/AdvReac Type Severity Reaction Status Date / Time adhesive Allergy Unknown Verified 05/16/22 03:41 aspirin Allergy Unknown Verified 05/16/22 03:41 diphenhydramine Allergy Anxiety Verified 05/16/22 03:41 [From Benadryl] fluticasone [From Flonase] Allergy Dizziness Verified 05/16/22 03:41 promethazine [From Phenergan] Allergy Anaphylaxis Verified 05/16/22 03:41 shellfish derived Allergy Unknown Verified 05/16/22 03:41 - Social History Does the pt smoke?: No Smoking Status: Never smoker Does the pt drink ETOH?: Yes Does the pt have substance abuse?: No - POLST Patient has POLST: No PD ED PE NORMAL - Vitals Vital signs reviewed: Yes - General General: Alert and oriented X 3, Other (Mildly light sensitive but otherwise appears well and not in overt distress) - HEENT HEENT: PERRL, EOMI - Neck Neck: Supple, no meningeal sign, No bony TTP - Cardiac Cardiac: RRR, No murmur - Respiratory Respiratory: No respiratory distress, Clear bilaterally - Abdomen Abdomen: Normal bowel sounds, Soft, Non tender - Back Back: No CVA TTP, No spinal TTP - Derm Derm: Normal color, Warm and dry - Extremities Extremities: No edema, No calf tenderness / cord - Neuro Neuro: Alert and oriented X 3, websphere architect 2-12 intact, No motor deficit, No sensory deficit, Normal speech Eye Opening: Spontaneous Motor: Obeys Commands Verbal: Oriented GCS Score: 15 Results - Vitals Vitals: Vital Signs - 24 hr 05/30/22 19:46 Heart Rate 82 Respiratory 16 Rate Blood Pressure 150/93 H O2 Saturation 98 Oxygen O2 Source Room air - Labs Labs: Laboratory Tests 05/30/22 21:50 Sodium 138 Potassium 4.6 Chloride 104 Carbon Dioxide 27 Anion Gap 7.0 BUN 10 Creatinine 0.8 Estimated GFR (MDRD) 76 L Glucose 101 H Calcium 9.5 Total Bilirubin 0.5 AST 23 ALT 15 Alkaline Phosphatase 77 Total Protein 7.5 Albumin 4.2 Globulin 3.3 Albumin/Globulin Ratio 1.3 Lipase 20 L PD MEDICAL DECISION MAKING - ED course ED course: 47-year-old woman presents with upper abdominal pain with known chronic cholecystitis. She is nontender and labs are done with unremarkable liver enzymes. Her main complaint though is a migraine headache. Nothing in the history or physical to suggest a more serious cause such as sudden onset to sugg est subarachnoid hemorrhage or neck stiffness or infectious symptoms to suggest meningitis. After the administration of Toradol and Reglan the headache was significantly better but not gone. She still requested discharge at that point though. Departure - Departure Disposition: 01 Home, Self Care Clinical Impression: Chronic cholecystitis Migraine Qualifiers: Migraine type: with aura Status migrainosus presence: with status migrainosus Intractability: not intractable Qualified Code(s): G43.101 - Migraine with aura, not intractable, with status migrainosus Condition: Good Record reviewed to determine appropriate education?: Yes Instructions: ED Headache Migraine, Gallstones Dc Comments: Call your doctor to arrange a follow-up appointment, make the next available appointment. In the interim, return anytime if worse or if new symptoms develop.
[2022-05-30 22:08] LABS: ALBUMIN 4.2 g/dL (3.2-5.5); ALBUMIN/GLOBULIN RATIO 1.3 (1.0-2.2); BILIRUBIN,TOTAL 0.5 mg/dL (0.2-1.0); CALCIUM 9.5 mg/dL (8.5-10.3); CREATININE 0.8 mg/dL (0.4-1.0); POTASSIUM 4.6 mmol/L (3.5-5.0); TOTAL PROTEIN 7.5 g/dL (6.7-8.2)
[2022-05-30] MEDS ORDERED: HYDROcod/ACET 5/325 Prepack 4 PO STA (22:28)
[2022-05-30 22:43] VITALS: BP 118/82
== END 2022-05-30 22:42 | disposition home or self-care (01) ==
LOC: ED 19:25
DX: K81.1 Chronic cholecystitis (principal); G43.101 Migraine with aura, not intractable, with status migrainosus; I10 Essential (primary) hypertension
CPT/HCPCS: 36415; 80053; 83690; 96374; 96375; 99282; 99283; J2765

== ENCOUNTER 2022-06-15 05:36 | Outpatient (CLI) | payer OTHER | END 2022-06-15 05:37 | disposition EMS.NT | LOC: EMS 05:36 | DX: R00.0 Tachycardia, unspecified (principal); F41.9 Anxiety disorder, unspecified ==

== ENCOUNTER 2022-07-27 15:31 | Emergency (ER) | payer OTHER ==
[2022-07-27 17:31] LABS: BASOPHILS # (AUTO) 0.1 10^3/uL (0.0-0.1); BASOPHILS % (AUTO) 0.9 %; EOSINOPHILS # (AUTO) 0.1 10^3/uL (0.0-0.7); HCT - HEMATOCRIT 42.2 % (37.0-47.0); HGB - HEMOGLOBIN 13.8 g/dL (12.0-16.0); LYMPHOCYTES # (AUTO) 1.1 10^3/uL (1.5-3.5); LYMPHOCYTES % (AUTO) 20.4 %; MEAN CORPUSCULAR HEMOGLOBIN 29.6 pg (27.0-31.0); MEAN CORPUSCULAR HGB CONC 32.7 g/dL (32.0-36.0); MEAN CORPUSCULAR VOLUME 90.6 fL (81.0-99.0); MEAN PLATELET VOLUME 10.1 fL (7.9-10.8); MONOCYTES # (AUTO) 0.4 10^3/uL (0.0-1.0); MONOCYTES % (AUTO) 6.6 %; NEUTROPHILS # (AUTO) 3.9 10^3/uL (1.5-6.6); NEUTROPHILS % (AUTO) 69.7 %; PLT - PLATELET COUNT 318 10^3/uL (130-450); RED BLOOD COUNT 4.66 10^6/uL (4.20-5.40); RED CELL DISTRIBUTION WIDTH 13.8 % (12.0-15.0); WHITE BLOOD COUNT 5.6 x10^3/uL (4.8-10.8)
--- NOTE | 2022-07-27 17:31 | XRAY Report ---
PROCEDURE: Chest 2 View X-Ray INDICATIONS: cough TECHNIQUE: 2 views of the chest were acquired. COMPARISON: 05/13/2022, 03/23/2022 FINDINGS: There is a stable left-sided electronic device seen, which is attributed to phleboliths spacer. Low lung volumes can be seen, causing a crowded appearance to the lung markings. No keyon focal infil trates are seen. No large pneumothorax or large pleural effusion can be seen. Negative for cardiomegaly. Mild generalized bony degenerative changes are seen. The overlying soft tissues are within normal escobar its. IMPRESSION: Low lung volumes, without an acute abnormality seen. Reviewed by: Nilesh Hood MD on 07/27/2022 4:29 PM [facility] Approved by: Nilesh Hood MD on 07/27/2022 4:29 PM [facility] Station ID: [id number]
--- NOTE | 2022-07-27 17:39 | ED Physician Documentation ---
History of Present Illness - Stated complaint Stated Complaint: DIARRHEA,SOA - Chief complaint Chief Complaint: General - History obtained from History obtained from: Patient - Additonal information Additional information: 47-year-old woman with history of asthma, COPD, emphysema, POTS, fibromyalgia presents with a few days worth of worsening shortness of breath associated with cough. Yesterday she choked on a pill and ever since then has had a few episodes of pink-tinged bloody sputum, not gross hemoptysis. No fevers. No pedal edema or calf pain. Review of Systems Ten Systems: 10 systems reviewed and negative Constitutional: denies: Fever, Chills Cardiac: denies: Chest pain / pressure, Palpitations Respiratory: reports: Dyspnea, Cough. denies: Wheezing GI: reports: Diarrhea. 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 TECHNICIAN: Ovarian cysts, Fibroids : None HEENT: None Psych: Anxiety, Post traumatic stress disorder Musculoskeletal: None Derm: None - Past Surgical History Past Surgical History: Yes /ORTHOPEDIC TECHNICIAN: Tubal ligation, LEEP (Cervical surgery) Cardiovascular: Lobectomy - Present Medications Home Medications: Ambulatory Orders Medication Instructions Recorded Confirmed Metoprolol Tartrate [Lopressor] 25 mg PO BID 03/31/21 05/13/22 Pantoprazole [Protonix inj] 40 mg PO DAILY 03/31/21 05/13/22 clonazePAM [Clonazepam] 0.5 mg PO TID 03/31/21 05/13/22 polyethylene glycoL 3350 [Miralax] 17 gm PO DAILY PRN #1 bottle 05/27/21 05/13/22 - Allergies Allergies/Adverse Reactions: Allergies Allergy/AdvReac Type Severity Reaction Status Date / Time adhesive Allergy Unknown Verified 07/27/22 16:24 aspirin Allergy Unknown Verified 07/27/22 16:24 diphenhydramine Allergy Anxiety Verified 07/27/22 16:24 [From Benadryl] fluticasone [From Flonase] Allergy Dizziness Verified 07/27/22 16:24 promethazine [From Phenergan] Allergy Anaphylaxis Verified 07/27/22 16:24 shellfish derived Allergy Unknown Verified 07/27/22 16:24 - Social History Does the pt smoke?: No Smoking Status: Never smoker Does the pt drink ETOH?: Yes Does the pt have substance abuse?: No - POLST Patient has POLST: No PD ED PE NORMAL - Vitals Vital signs reviewed: Yes - General General: Alert and oriented X 3, No acute distress - HEENT HEENT: PERRL, EOMI - Neck Neck: Supple, no meningeal sign, No bony TTP - Cardiac Cardiac: RRR, No murmur - Respiratory Respiratory: No respiratory distress, Clear bilaterally - Abdomen Abdomen: Normal bowel sounds, Non tender - Back Back: No CVA TTP, No spinal TTP - Derm Derm: Normal color, Warm and dry - Extremities Extremities: No edema, No calf tenderness / cord - Neuro Neuro: Alert and oriented X 3, Normal speech Results - Vitals Vitals: Vital Signs - 24 hr 07/27/22 16:24 Temperature 36.1 C L Heart Rate 96 Respiratory 20 Rate Blood Pressure 140/90 H O2 Saturation 99 Oxygen O2 Source Room air - Labs Labs: Laboratory Tests 07/27/22 07/27/22 07/27/22 17:22 17:22 17:38 WBC 5.6 RBC 4.66 Hgb 13.8 Hct 42.2 MCV 90.6 MCH 29.6 MCHC 32.7 RDW 13.8 Plt Count 318 MPV 10.1 Neut # (Auto) 3.9 Lymph # (Auto) 1.1 L [place] # (Auto) 0.4 Eos # (Auto) 0.1 Baso # (Auto) 0.1 Absolute Nucleated RBC 0.00 Nucleated RBC % 0.0 D-Dimer < 200.0 L Sodium 139 Potassium 3.8 Chloride 103 Carbon Dioxide 28 Anion Gap 8.0 BUN 6 Creatinine 0.7 Estimated GFR (MDRD) 89 Glucose 97 Calcium 9.4 Total Bilirubin 0.4 AST 18 ALT 19 Alkaline Phosphatase 90 Total Protein 7.8 Albumin 4.3 Globulin 3.5 Albumin/Globulin Ratio 1.2 PD MEDICAL DECISION MAKING - ED course ED course: 47-year-old woman presents with mild hemoptysis after choking but has not had a cough. Lungs are clear despite history of asthma. Her chest x-ray is unremarkable save for low lung volumes. Blood work including a screening test f or blood clots, D-dimer was negative. Departure - Departure Disposition: 01 Home, Self Care Clinical Impression: Dyspnea Condition: Good Record reviewed to determine appropriate education?: Yes Instructions: ED Dyspnea Shortness of Breath Comments: Basic blood work and screening test for blood clots were negative. Chest x-ray unremarkable. Return for new or worsening symptoms but okay to use your inhaler and [id number] cough syrup.
[2022-07-27 17:43] LABS: ALBUMIN 4.3 g/dL (3.2-5.5); ALBUMIN/GLOBULIN RATIO 1.2 (1.0-2.2); BILIRUBIN,TOTAL 0.4 mg/dL (0.2-1.0); CALCIUM 9.4 mg/dL (8.5-10.3); CREATININE 0.7 mg/dL (0.4-1.0); POTASSIUM 3.8 mmol/L (3.5-5.0); TOTAL PROTEIN 7.8 g/dL (6.7-8.2)
[2022-07-27 18:39] VITALS: BP 121/79
== END 2022-07-27 18:39 | disposition home or self-care (01) ==
LOC: ED 15:31
DX: R06.09 Other forms of dyspnea (principal); I10 Essential (primary) hypertension
CPT/HCPCS: 36415; 80053; 85025; 85379; 99282; 99284

== ENCOUNTER 2022-09-10 16:25 | Outpatient (CLI) | payer OTHER | END 2022-09-10 16:26 | disposition EMS.NT | LOC: EMS 16:25 | DX: R07.89 Other chest pain (principal); F41.9 Anxiety disorder, unspecified ==

== ENCOUNTER 2022-10-21 05:25 | Outpatient (CLI) | payer OTHER | END 2022-10-21 05:26 | disposition critical access hospital (66) | LOC: EMS 05:25 | DX: R07.89 Other chest pain (principal); R00.0 Tachycardia, unspecified; F41.9 Anxiety disorder, unspecified | CPT/HCPCS: A0425; A0427 ==

== ENCOUNTER 2022-10-21 05:52 | Emergency (ER) | payer OTHER ==
[2022-10-21 07:35] LABS: BASOPHILS # (AUTO) 0.1 10^3/uL (0.0-0.1); BASOPHILS % (AUTO) 0.6 %; EOSINOPHILS # (AUTO) 0.1 10^3/uL (0.0-0.7); EOSINOPHILS % (AUTO) 0.9 %; HGB - HEMOGLOBIN 12.2 g/dL (12.0-16.0); LYMPHOCYTES # (AUTO) 1.1 10^3/uL (1.5-3.5); LYMPHOCYTES % (AUTO) 13.4 %; MEAN CORPUSCULAR HEMOGLOBIN 30.3 pg (27.0-31.0); MEAN CORPUSCULAR VOLUME 91.8 fL (81.0-99.0); MONOCYTES # (AUTO) 0.4 10^3/uL (0.0-1.0); MONOCYTES % (AUTO) 5.6 %; NEUTROPHILS # (AUTO) 6.2 10^3/uL (1.5-6.6); NEUTROPHILS % (AUTO) 79.1 %; PLT - PLATELET COUNT 266 10^3/uL (130-450); RED BLOOD COUNT 4.03 10^6/uL (4.20-5.40); RED CELL DISTRIBUTION WIDTH 13.2 % (12.0-15.0); WHITE BLOOD COUNT 7.9 x10^3/uL (4.8-10.8)
--- NOTE | 2022-10-21 07:36 | ED Physician Documentation ---
History of Present Illness - Stated complaint Stated Complaint: CP, FAST HEART RATE - Chief complaint Chief Complaint: Cardiac - History obtained from History obtained from: Patient - Additonal information Additional information: Patient is a 47-year-old female with a history of POTS presenting for evaluation of feeling Her heart racing, thump like sensation in her chest and short of breath this morning around 445.Patient denies that she had chest pain And does not want to call which she was feeling a pain but again states that it was a heavy thump like feeling in her chest. There is no radiation elsewhere. She initially thought it could be related to her CPAP.She does have a history of paroxysmal SVT and PVCs and has a loop recorder.She currently reports her symptoms have abated. She has not recently been ill. Ever since having gallbladder surgery 2 months ago she reports having difficulties in sleeping.She denies recently being ill with fever, cough or congestion. She denies vomiting or diarrhea. She denies dysuria. She denies lower extremity swelling or concerns for . 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 - Past Surgical History Past Surgical History: Yes General: Other /BRICK PICKER: Tubal ligation, LEEP (Cervical surgery) Cardiovascular: Lobectomy - Present Medications Home Medications: Ambulatory Orders Medication Instructions Recorded Confirmed Metoprolol Tartrate [Lopressor] 25 mg PO BID 03/31/21 05/13/22 Pantoprazole [Protonix inj] 40 mg PO DAILY 03/31/21 05/13/22 clonazePAM [Clonazepam] 0.5 mg PO TID 03/31/21 05/13/22 polyethylene glycoL 3350 [Miralax] 17 gm PO DAILY PRN #1 bottle 05/27/21 05/13/22 - Allergies Allergies/Adverse Reactions: Allergies Allergy/AdvReac Type Severity Reaction Status Date / Time adhesive Allergy Unknown Verified 10/21/22 06:01 aspirin Allergy Unknown Verified 10/21/22 06:01 diphenhydramine Allergy Anxiety Verified 10/21/22 06:01 [From Benadryl] fluticasone [From Flonase] Allergy Dizziness Verified 10/21/22 06:01 promethazine [From Phenergan] Allergy Anaphylaxis Verified 10/21/22 06:01 shellfish derived Allergy Unknown Verified 10/21/22 06:01 - Social History Does the pt smoke?: No Smoking Status: Never smoker Does the pt drink ETOH?: Yes Does the pt have substance abuse?: No - Immunizations Immunizations are current?: No - POLST Patient has POLST: No PD ED PE NORMAL - General General: Alert and oriented X 3, No acute distress, Well developed/nourished - HEENT HEENT: Atraumatic - Neck Neck: Supple, no meningeal sign - Cardiac Cardiac: RRR, No murmur - Respiratory Respiratory: No respiratory distress, Clear bilaterally - Abdomen Abdomen: Soft, Non tender, Non distended - Derm Derm: Warm and dry - Extremities Extremities: No edema, No calf tenderness / cord - Neuro Neuro: Normal speech Results - Vitals Vitals: Vital Signs - 24 hr 10/21/22 10/21/22 10/21/22 05:59 06:02 06:50 Temperature 37.6 C Heart Rate 108 H 93 Respiratory 17 17 18 Rate Blood Pressure 138/79 H 126/92 H O2 Saturation 100 98 10/21/22 10/21/22 08:01 09:26 Temperature 37.4 C Heart Rate 80 72 Respiratory 12 14 Rate Blood Pressure 130/93 H 125/88 H O2 Saturation 97 97 Oxygen O2 Source Room air - EKG (time done) 0617 Rate: Rate (enter#) (98) Rhythm: NSR Intervals: No: Prolonged QT Ischemia: No: ST elevation c/w ischemia - Labs Labs: Laboratory Tests 10/21/22 10/21/22 10/21/22 07:28 07:29 07:29 WBC 7.9 RBC 4.03 L Hgb 12.2 Hct 37.0 MCV 91.8 MCH 30.3 MCHC 33.0 RDW 13.2 Plt Count 266 MPV 10.0 Neut # (Auto) 6.2 Lymph # (Auto) 1.1 L [place] # (Auto) 0.4 Eos # (Auto) 0.1 Baso # (Auto) 0.1 Absolute Nucleated RBC 0.00 Nucleated RBC % 0.0 D-Dimer Sodium 136 Potassium 3.6 Chloride 103 Carbon Dioxide 23 Anion Gap 10.0 BUN 7 Creatinine 0.7 Estimated GFR (MDRD) 89 Glucose 117 H Calcium 9.1 Total Bilirubin 0.7 AST 18 ALT 15 Alkaline Phosphatase 72 Troponin I High Sens 3.3 Total Protein 7.3 Albumin 4.0 Globulin 3.3 Albumin/Globulin Ratio 1.2 Serum HCG, Qual 10/21/22 10/21/22 07:29 07:29 WBC RBC Hgb Hct MCV MCH MCHC RDW Plt Count MPV Neut # (Auto) Lymph # (Auto) [place] # (Auto) Eos # (Auto) Baso # (Auto) Absolute Nucleated RBC Nucleated RBC % D-Dimer < 200.0 L Sodium Potassium Chloride Carbon Dioxide Anion Gap BUN Creatinine Estimated GFR (MDRD) Glucose Calcium Total Bilirubin AST ALT Alkaline Phosphatase Troponin I High Sens Total Protein Albumin Globulin Albumin/Globulin Ratio Serum HCG, Qual NEGATIVE PD Medical Decision Making - ED course Complexity details: reviewed results, re-evaluated patient, d/w patient, d/w family ED course: Patient presenting for evaluation of discomfort in her chest along with feeling short of air. Has a history of palpitations. EKG is a normal sinus rhythm without signs of arrhythmia. Labs are reviewed and are reassuring including negative troponin and D-dimer. With a negative D-dimer feel that a PE is unlikely.Also feel ACS is unlikely as her pain seems atypical and patient does not even want to describe what she is feeling as pain and EKG is negative for signs of acute ischemia with a negative high-sensitivity troponin.I reviewed her chest x-ray. Her loop recorder was interrogated and per [employer] rep patient had PVCs this morning but no other arrhythmias. She is feeling better here and has not had any further episodes. Remains in sinus rhythm. Patient counseled on need for close follow-up with PCP and vice provost. She is advised on concerning symptoms to return for. Departure - Departure Disposition: 01 Home, Self Care Clinical Impression: Palpitations Condition: Stable Instructions: ED Palpitations Comments: Your labs today are reassuring with negative markers for blood clots in your lungs and heart attacks. Your chest x-ray appears clear. Your electrolytes are within normal limits. Your EKG here shows a regular rhythm and per [employer] you did have some episodes of PVCs. Please continue to stay hydrated and have close follow-up with your vice provost at [facility]. If you have any new or worsening symptoms please consider return to the emergency department. Discharge Date/Time: 10/21/22 09:30
[2022-10-21 07:47] LABS: ALBUMIN/GLOBULIN RATIO 1.2 (1.0-2.2); BILIRUBIN,TOTAL 0.7 mg/dL (0.2-1.0); CALCIUM 9.1 mg/dL (8.5-10.3); CREATININE 0.7 mg/dL (0.4-1.0); POTASSIUM 3.6 mmol/L (3.5-5.0); TOTAL PROTEIN 7.3 g/dL (6.7-8.2)
[2022-10-21 07:57] LABS: HCG,QUALITATIVE BLOOD NEGATIVE
--- NOTE | 2022-10-21 08:14 | XRAY Report ---
PROCEDURE: Chest 1 View X-Ray INDICATIONS: CP TECHNIQUE: One view of the chest was acquired. COMPARISON: 07/27/2022 FINDINGS: Surgical changes and devices: Left chest is again seen. Lungs and pleura: Low lung volumes. No dense consolidation or pleural effusion. Able right atelectas is versus scarring at the base. Mediastinum: Mediastinal contours appear normal. Heart size is normal. Bones and chest wall: No suspicious bony lesions. Overlying soft tissues appear unremarkable. IMPRESSION: Stable right basal opacity, possibly atelectasis or scarring. Consider future imaging surveillance to assess for resolution. No acute radiographic abnormality Reviewed by: Almas Cervantes MD on 10/21/2022 8:13 AM PST Approved by: Almas Cervantes MD on 10/21/2022 8:13 AM PST Station ID: [id number]
[2022-10-21 09:27] VITALS: BP 125/88
== END 2022-10-21 09:30 | disposition home or self-care (01) ==
LOC: EDSEX → EDUNIT# → ED 05:52
DX: R00.2 Palpitations (principal)
CPT/HCPCS: 36415; 80053; 84484; 84703; 85025; 85379; 93005; 99283; 99284

== ENCOUNTER 2022-12-24 17:27 | Emergency (ER) | payer OTHER ==
[2022-12-24 18:43] LABS: BASOPHILS # (AUTO) 0.1 10^3/uL (0.0-0.1); BASOPHILS % (AUTO) 0.8 %; EOSINOPHILS # (AUTO) 0.2 10^3/uL (0.0-0.7); EOSINOPHILS % (AUTO) 2.3 %; LYMPHOCYTES # (AUTO) 1.4 10^3/uL (1.5-3.5); LYMPHOCYTES % (AUTO) 17.2 %; MEAN CORPUSCULAR HEMOGLOBIN 29.6 pg (27.0-31.0); MEAN CORPUSCULAR HGB CONC 32.5 g/dL (32.0-36.0); MEAN CORPUSCULAR VOLUME 91.1 fL (81.0-99.0); MONOCYTES # (AUTO) 0.4 10^3/uL (0.0-1.0); MONOCYTES % (AUTO) 5.5 %; NEUTROPHILS # (AUTO) 5.8 10^3/uL (1.5-6.6); NEUTROPHILS % (AUTO) 73.6 %; PLT - PLATELET COUNT 343 10^3/uL (130-450); RED BLOOD COUNT 4.39 10^6/uL (4.20-5.40); RED CELL DISTRIBUTION WIDTH 13.3 % (12.0-15.0); WHITE BLOOD COUNT 7.9 x10^3/uL (4.8-10.8)
--- NOTE | 2022-12-24 18:49 | XRAY Report ---
PROCEDURE: Chest 1 View X-Ray INDICATIONS: Short of breath TECHNIQUE: One view of the chest was acquired. COMPARISON: 10/21/2022, 07/27/2022 FINDINGS: Surgical changes and devices: A left chest wall electronic device is seen, which is most likely to , although please correlate with known patient history and Lungs and pleura: No pleural effusions or pneumothorax. Lungs are clear. Mediastinum: Mediastinal contours appear normal. Heart size is normal. Bones and chest wall: No suspicious bony lesions. Overlying soft tissues appear unremarkable. IMPRESSION: No acute portable chest abnormality can be seen. Reviewed by: Nilesh Hood MD on 12/24/2022 5:48 PM AKDT Approved by: Nilesh Hood MD on 12/24/2022 5:48 PM AKDT Station ID: [id number]
[2022-12-24 18:58] LABS: ALBUMIN 4.2 g/dL (3.2-5.5); ALBUMIN/GLOBULIN RATIO 1.2 (1.0-2.2); BILIRUBIN,TOTAL 0.3 mg/dL (0.2-1.0); CALCIUM 9.1 mg/dL (8.5-10.3); CREATININE 0.8 mg/dL (0.4-1.0); POTASSIUM 3.5 mmol/L (3.5-5.0); TOTAL PROTEIN 7.8 g/dL (6.7-8.2)
[2022-12-24 19:47] LABS: B. PARAPERTUSSIS- RESP PCR PAN NOT DETECTED; B. PERTUSSIS- RESP PCR PANEL NOT DETECTED; C. PNEUMONIAE- RESP PCR PANEL NOT DETECTED; CORONAVIRUS 229E-RESP PCR NOT DETECTED; CORONAVIRUS HKU1-RESP PCR NOT DETECTED; CORONAVIRUS NL63-RESP PCR NOT DETECTED; CORONAVIRUS OC43-RESP PCR NOT DETECTED; HUMAN METAPNEUMOVIRUS NOT DETECTED; INFLUENZA A- RESP PCR PANEL NOT DETECTED; INFLUENZA B - RESP PCR PANEL NOT DETECTED; M. PNEUMONIAE- RESP PCR PANEL NOT DETECTED; PARAINFLUENZA VIRUS 1 NOT DETECTED; PARAINFLUENZA VIRUS 2 NOT DETECTED; PARAINFLUENZA VIRUS 3 NOT DETECTED; PARAINFLUENZA VIRUS 4 NOT DETECTED; RHINOVIRUS/ENTEROVIRUS NOT DETECTED; RSV- RESP PCR PANEL NOT DETECTED; SARS-CoV-2 -RESP PCR PANEL NOT DETECTED
--- NOTE | 2022-12-24 21:04 | ED Physician Documentation ---
History of Present Illness - Stated complaint Stated Complaint: HEART PALPS/SOA - Chief complaint Chief Complaint: Resp - History obtained from History obtained from: Patient - Additonal information Additional information: Patient is a 47-year-old female with a history of lung ca s/p lobectomy and has been in remission for 7 years along with POTS and history of PSVT presenting for evaluation of feeling short of air and having heart palpitations. Patient states that she is had a cough and congestion for several days. Her PCP who prescribed ciprofloxacin. There is no chest x-ray done. She denies feeling any better with this medication. She reports feeling increased heart palpitations this afternoon. Has a loop recorder through [employer]. She was concerned because her blood pressure was elevated. She also reports feeling anxious that she saw an unpleasant patient out in the waiting room.Denies having chest pain. She denies feeling dizzy or lightheaded. She denies history of PE or DVT. Review of Systems Constitutional: denies: Fever Cardiac: reports: Palpitations. 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: Ovarian cysts, Fibroids : None HEENT: None Psych: Anxiety, Post traumatic stress disorder Musculoskeletal: None Derm: None - Past Surgical History Past Surgical History: Yes General: Other /PLANT FACILITIES TECHNICIAN: Tubal ligation, LEEP (Cervical surgery) Cardiovascular: Lobectomy - Present Medications Home Medications: Ambulatory Orders Medication Instructions Recorded Confirmed Metoprolol Tartrate [Lopressor] 25 mg PO BID 03/31/21 05/13/22 Pantoprazole [Protonix inj] 40 mg PO DAILY 03/31/21 05/13/22 clonazePAM [Clonazepam] 0.5 mg PO TID 03/31/21 05/13/22 polyethylene glycoL 3350(BULK) 17 gm PO DAILY PRN #1 bottle 05/27/21 05/13/22 [Miralax] - Allergies Allergies/Adverse Reactions: Allergies Allergy/AdvReac Type Severity Reaction Status Date / Time adhesive Allergy Unknown Verified 12/24/22 18:09 aspirin Allergy Unknown Verified 04/05/23 18:09 diphenhydramine Allergy Anxiety Verified 12/24/22 18:09 [From Benadryl] fluticasone [From Flonase] Allergy Dizziness Verified 12/24/22 18:09 promethazine [From Phenergan] Allergy Anaphylaxis Verified 12/24/22 18:09 shellfish derived Allergy Unknown Verified 12/24/22 18:09 - Social History Does the pt smoke?: No Smoking Status: Never smoker Does the pt drink ETOH?: Yes Does the pt have substance abuse?: No - Immunizations Immunizations are current?: No - POLST Patient has POLST: No PD ED PE NORMAL - General General: Alert and oriented X 3, No acute distress, Well developed/nourished - HEENT HEENT: Atraumatic - Neck Neck: Supple, no meningeal sign - Cardiac Cardiac: RRR, No murmur - Respiratory Respiratory: No respiratory distress, Clear bilaterally - Abdomen Abdomen: Soft, Non tender, Non distended - Derm Derm: Warm and dry - Extremities Extremities: No calf tenderness / cord - Neuro Neuro: Normal speech Results - Vitals Vitals: Vital Signs - 24 hr 12/24/22 12/24/22 12/24/22 17:59 18:47 20:00 Temperature 36.8 C Heart Rate 108 H 114 H 66 Respiratory 10 L 10 L 17 Rate Blood Pressure 158/111 H 112/79 98/63 O2 Saturation 99 99 12/24/22 21:19 Temperature Heart Rate 62 Respiratory 13 Rate Blood Pressure 110/71 O2 Saturation 98 Oxygen O2 Source Room air - EKG (time done) 1801 EKG releavant findings:: EKG personally interpreted by author of this note. Relevant findings are: Rate 123, sinus tachycardia, no STEMI Rate: Rate (enter#) (123) Rhythm: Sinus tachycardia Intervals: No: Prolonged QT Ischemia: No: ST elevation c/w ischemia - Labs Labs: Laboratory Tests 12/24/22 12/24/22 12/24/22 18:36 18:36 18:36 WBC 7.9 RBC 4.39 Hgb 13.0 Hct 40.0 MCV 91.1 MCH 29.6 MCHC 32.5 RDW 13.3 Plt Count 343 MPV 10.0 Neut # (Auto) 5.8 Lymph # (Auto) 1.4 L [place] # (Auto) 0.4 Eos # (Auto) 0.2 Baso # (Auto) 0.1 Absolute Nucleated RBC 0.00 Nucleated RBC % 0.0 D-Dimer < 200.0 L Sodium 136 Potassium 3.5 Chloride 104 Carbon Dioxide 26 Anion Gap 6.0 BUN 9 Creatinine 0.8 Estimated GFR (MDRD) 76 L Glucose 104 H Calcium 9.1 Total Bilirubin 0.3 AST 20 ALT 16 Alkaline Phosphatase 95 Total Protein 7.8 Albumin 4.2 Globulin 3.6 Albumin/Globulin Ratio 1.2 Nasal Adenovirus (PCR) Nasal B. parapertussis DNA (PCR) Nasal Coronavir 229E PCR Nasal Coronavir HKU1 PCR Nasal Coronavir NL63 PCR Nasal Coronavir OC43 PCR Nasal Enterovir/Rhinovir PCR Nasal Influenza B PCR Nasal Influenza A PCR Nasal Parainfluen 1 PCR Nasal Parainfluen 2 PCR Nasal Parainfluen 3 PCR Nasal Parainfluen 4 PCR Nasal RSV (PCR) Nasal B.pertussis DNA PCR Nasal C.pneumoniae (PCR) Jan Human Metapneumo PCR Nasal M.pneumoniae (PCR) Nasal SARS-CoV-2 (PCR) 12/24/22 18:40 WBC RBC Hgb Hct MCV MCH MCHC RDW Plt Count MPV Neut # (Auto) Lymph # (Auto) [place] # (Auto) Eos # (Auto) Baso # (Auto) Absolute Nucleated RBC Nucleated RBC % D-Dimer Sodium Potassium Chloride Carbon Dioxide Anion Gap BUN Creatinine Estimated GFR (MDRD) Glucose Calcium Total Bilirubin AST ALT Alkaline Phosphatase Total Protein Albumin Globulin Albumin/Globulin Ratio Nasal Adenovirus (PCR) NOT DETECTED Nasal B. parapertussis DNA (PCR) NOT DETECTED Nasal Coronavir 229E PCR NOT DETECTED Nasal Coronavir HKU1 PCR NOT DETECTED Nasal Coronavir NL63 PCR NOT DETECTED Nasal Coronavir OC43 PCR NOT DETECTED Nasal Enterovir/Rhinovir PCR NOT DETECTED Nasal Influenza B PCR NOT DETECTED Nasal Influenza A PCR NOT DETECTED Nasal Parainfluen 1 PCR NOT DETECTED Nasal Parainfluen 2 PCR NOT DETECTED Nasal Parainfluen 3 PCR NOT DETECTED Nasal Parainfluen 4 PCR NOT DETECTED Nasal RSV (PCR) NOT DETECTED Nasal B.pertussis DNA PCR NOT DETECTED Nasal C.pneumoniae (PCR) NOT DETECTED Jan Human Metapneumo PCR NOT DETECTED Nasal M.pneumoniae (PCR) NOT DETECTED Nasal SARS-CoV-2 (PCR) NOT DETECTED PD Medical Decision Making - ED course Complexity details: reviewed results, re-evaluated patient ED course: Pt is a 47 yo F with h/o lung cancer in remission and PSVT with more palpitations today and feeling SOA in recent days. She has had URI symptoms and has been on cipro ordered by her PCP. She denies CP to suggest ACS. She does not appear to have fluid overload.. Her SOA is better here. Her initial BP was elevated but lowered without any specific intervention. EKG shows sinus tachycardia and her HR normalized with time and her taking her usual home metoprolol. Chest XR is negative for consolidation, effusion, fluid overload. CBC, CHemistries and Ddimer reviewed and without significant abnormalities. Her respiratory swab is negative. We discussed interrogating her loop recorder. Unfortunately our [employer] device here is not working. We contacted the rep and he was unable to help us trouble shoot over the phone. He would be able to come in person but is in [place] so would be 2.5 hrs before he gets here. Pt has a way of transmitting info from her device to her Cardiology office everynight which they receive in the morning. She does not want to wait for the rep to come tonight. IN the past her arrhythmias have been PSVT. She has had no arrhythmias here. She would like to go home which I feel is reasonable given she has a long history of palpitations and feeling better here. She is counseled on need for follow up with cardiology and strict return precautions. Departure - Departure Disposition: 01 Home, Self Care Clinical Impression: Palpitations, Dyspnea Condition: Stable Instructions: ED Palpitations Comments: We were unable to Interrogate your loop recorder tonight and we understand not wanting to wait several hours for the [employer] rep to come in. I would recommend having close follow-up with your continuous mining machine lode miner tomorrow as they should get a report from today From your device. If at anytime you have any new or worsening symptoms please return to the emergency department. Discharge Date/Time: 12/24/22 21:26
[2022-12-24 21:25] VITALS: BP 110/71
== END 2022-12-24 21:26 | disposition home or self-care (01) ==
LOC: ED 17:27
DX: R00.2 Palpitations (principal); R06.09 Other forms of dyspnea; I10 Essential (primary) hypertension; Z20.822 Contact with and (suspected) exposure to COVID-19
CPT/HCPCS: 36415; 80053; 85025; 85379; 87633; 93005; 99284

== ENCOUNTER 2023-01-15 12:50 | Outpatient (CLI) | payer OTHER | END 2023-01-15 23:59 | disposition short-term general hospital (02) | LOC: EMS 12:50 | DX: R42 Dizziness and giddiness (principal); R06.02 Shortness of breath; R00.0 Tachycardia, unspecified; F41.9 Anxiety disorder, unspecified | CPT/HCPCS: A0425; A0429 ==

== ENCOUNTER 2023-04-11 02:50 | Outpatient (CLI) | payer OTHER | END 2023-04-11 23:59 | disposition left against medical advice (07) | LOC: EMS 02:50 | DX: R00.2 Palpitations (principal) ==

== ENCOUNTER 2023-04-26 13:48 | Emergency (ER) | payer OTHER ==
[2023-04-26 14:07] VITALS: BP 125/88; O2SAT 97
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
--- NOTE | 2023-04-26 14:43 | XRAY Report ---
PROCEDURE: Chest 2 View X-Ray INDICATIONS: cough TECHNIQUE: 2 views of the chest were acquired. COMPARISON: None. FINDINGS: Surgical changes and devices: Metallic device projecting over the left lower heart is present, sugges tive of a leadless pacer, as before. Lungs and pleura: No pleural effusions or pneumothorax. Lungs are clear. Mediastinum: Mediastinal contours appear normal. Heart size is normal. Bones and chest wall: No suspicious bony lesions. Overlying soft tissues appear unremarkable. IMPRESSION: No acute process. Reviewed by: Rao Roa MD on 04/26/2023 2:41 PM PDT Approved by: Rao Roa MD on 04/26/2023 2:41 PM PDT Station ID: [id number]
== END 2023-04-26 15:00 | disposition home or self-care (01) ==
LOC: ED 13:48
DX: R05.9 Cough, unspecified (principal); J44.9 Chronic obstructive pulmonary disease, unspecified; I10 Essential (primary) hypertension; E05.90 Thyrotoxicosis, unspecified without thyrotoxic crisis or storm; Z79.899 Other long term (current) drug therapy
CPT/HCPCS: 99283

== ENCOUNTER 2023-07-16 15:36 | Outpatient (CLI) | payer OTHER ==
--- NOTE | 2023-07-16 16:41 | Sleep Patient Instructions ---
Sleep Center Visit Summary - Patient Visit Information Reason for Visit: Annual Visit - Patient Instructions Additional Instructions: You will continue with CPAP therapy with pressure set at 7-15 cmH2O. A supply prescription will be updated with your DME. I have added a CPAP pillow to your prescription. We encourage you to continue to try to lose weight. Please follow up with the sleep care office in 1 year. - Clinic Information Contact: [facility] [address] [place] [address] [email or web address] T: [phone]
--- NOTE | 2023-07-16 16:46 | SLEEP CARE CONSULTATION ---
Information from patient questionnaire entered by Zoila Kulkarni. I have reviewed and concur with the information entered by Zoila Kulkarni. This document represents the service I personally performed and the decisions made by me, Cristy Mendoza ARNP. History of Present Illness Service Date and Time: 07/16/2023 1536 Previous diagnosis: Mild, Obstructive Sleep Apnea-Hypopnea Syndrome AHI: 11.0 (in 2020) Reason for follow up: annual (LAST SEEN 04/2022) Accompanied by: Spouse Equipment type: CPAP (Dreamstation 2; s/u 01/2021; NEED SD CARD FOR DOWNLOAD) Equipment obtained from: Other ([employer]; has Dreamstation 2) Mask style: Nasal Mask brand: Respironics (Dreamwear) Backup mask available: Yes Last cushion change: 1-2 weeks Prior sleep studies: Yes Year and Where: 2020 - [facility] Type of Sleep Study: Polysomnography HPI additional information: ISMA JIMENEZ was diagnosed to have mild, AHI 11, obstructive sleep apnea- hypopnea syndrome and returned today for CPAP therapy annual follow-up. Sleep Study - Results Type of Sleep Study: Polysomnography Prior sleep studies: Yes Year and Where: 2020 - [facility] CPAP Compliance Data - Data Reviewed with Patient Average duration of nightly device use: 6 hours 16 minutes Compliance rate %: 83.3 (176/180 days used) Current pressure setting (cmH2O): 7-15 Average residual AHI: 2.8 Central apnea: 0.1 Obstructive apnea: 0.7 Hypopnea: 2 Average large leak: 1 mins 42 secs Subjective Patient concerns: reports: aerophagia, mask discomfort, nasal congestion, dry mouth, nose, throat, other (headaches). denies: air blowing in eyes, mask leak noise, condensation in mask/hose, epistaxis Observed to snore while using device: Yes Current pressure setting perceived as: comfortable (varies) On therapy, patient: reports: sleeping better, awakening more refreshed, being more awake and alert during the day, more rested overall. denies: drowsiness while driving Initial [place] Sleepiness Scale score: 7 (in 2019 ) Current [place] Sleepiness Scale score: 4 (07/16/23) Allergies and Home Medications Known drug allergies: Yes (as listed) Drug allergies reviewed: Yes Home medication list reviewed: Yes (no changes) Allergy and home medication list: Allergies adhesive Allergy (Verified 07/15/23 11:25) Unknown aspirin Allergy (Verified 07/15/23 11:25) Unknown diphenhydramine [From Benadryl] Allergy (Verified 07/15/23 11:25) Anxiety fluticasone [From Flonase] Allergy (Verified 07/15/23 11:25) Dizziness promethazine [From Phenergan] Allergy (Verified 07/15/23 11:25) Anaphylaxis shellfish derived Allergy (Verified 07/15/23 11:25) Unknown Review of Systems Review of systems same as previous: Yes (NO CHANGE) Physical Exam Vital signs obtained and entered by: ZOILA Quiroz MA Blood Pressure: 92/62 (RIGHT ) Cuff size: wrist Heart Rate: 62 O2 Saturation: 99 Height: 5 ft Weight: 266 lb 8 oz Body Mass Index: 52.0 BMI Classification: Morbidly Obese Impression and Plan 1. Obstructive Sleep Apnea-Hypopnea Syndrome, mild, with good treatment compliance and good apnea control. On CPAP therapy, the patient has better sleep quality and is more rested overall. Patient states she has some nights where she will wake up and feels like the pressure is really high. She thinks it is because of the position of her neck. She asked about the CPAP pillow and after discussion I do recommend she try a CPAP pillow to see if this will help her to position her head better and reduce air discomfort. She has been getting a lot of dry mouth and her dentist has been having her use XyliMelts at night which has been helping a lot with the mouth dryness at night. She is using her humidifier. I will have her follow-up in 6 months. Patient's apnea severity and rationale for treatment to reduce apnea, improve sleep quality and reduce cardiovascular and cerebrovascular events was reviewed. I also reviewed the benefit of consistent device use of CPAP for arrhythmia and mood disorder (PTSD). 2. Obesity, unspecified. Currently patients BMI is 52. Obesity increases the risk of apnea, CPAP pressure requirements and overall health risks especially cardiovascular and diabetes. Thus patient is advised to lose weight. * Continue auto CPAP pressure at 7-15 cmH2O * CPAP Pillow * Update supply prescription * Notify me if snoring with mask or feeling that the pressure is too much or too little * Attempt to lose weight * Call this office if any problems using CPAP * Return for follow up in 6 months, or sooner if concerns arise Counseling Topics: Spare mask, Weight loss health impact Prescriptions: Device supplies Follow up with Sleep Care in: 6 months Visit Type: In Office Time Spent with Patient (minutes): 24 Provider Statement: I spent 100% of the Face to Face Visit with the patient with greater than 50% spent counseling the patient and coordination of care.
[2023-07-16 16:55] VITALS: BP 92/62; O2SAT 99
== END 2023-07-16 15:37 | disposition home or self-care (01) ==
LOC: SC 15:36
PROVIDERS: ATTEND Nurse Practitioner Family
DX: G47.33 Obstructive sleep apnea (adult) (pediatric) (principal); E66.01 Morbid (severe) obesity due to excess calories; Z68.43 Body mass index [BMI] 50.0-59.9, adult
CPT/HCPCS: 99212; 99213

== ENCOUNTER 2023-09-13 00:45 | Outpatient (CLI) | payer OTHER | END 2023-09-13 23:59 | disposition EMS.NT | LOC: EMS 00:45 | DX: R09.89 Other specified symptoms and signs involving the circulatory and respiratory systems (principal) ==

== ENCOUNTER 2024-01-01 13:45 | Outpatient (CLI) | payer OTHER ==
--- NOTE | 2024-01-01 14:51 | Sleep Patient Instructions ---
Sleep Center Visit Summary - Patient Visit Information Reason for Visit: 6-month follow-up - Patient Instructions Additional Instructions: You were here for follow up of CPAP therapy. You will be continued on CPAP therapy with pressure at 7-15 cmH2O. You should follow up with sleep care in 12 months. You may contact us sooner for any questions or concerns. - Clinic Information Contact: [facility] [address] [place] [address] [email or web address] T: [phone]
--- NOTE | 2024-01-01 14:56 | SLEEP CARE CONSULTATION ---
Information from patient questionnaire entered by Zoila Kulkarni. I have reviewed and concur with the information entered by Zoila Kulkarni. This document represents the service I personally performed and the decisions made by me, Cristy Mendoza ARNP. History of Present Illness Service Date and Time: 01/01/2024 1345 Previous diagnosis: Mild, Obstructive Sleep Apnea-Hypopnea Syndrome AHI: 11.0 (in 2020) Reason for follow up: six month (F/U) Accompanied by: Spouse Equipment type: CPAP (Dreamstation 2; s/u 01/2021;) Equipment obtained from: Other ([employer]; has Dreamstation 2) Mask style: Nasal Backup mask available: Yes Last cushion change: last week Prior sleep studies: Yes Year and Where: 2020 - [facility] Type of Sleep Study: Polysomnography HPI additional information: ISMA JIMENEZ was diagnosed to have mild, AHI 11, obstructive sleep apnea- hypopnea syndrome and returned today with spouse for CPAP therapy six month follow-up. Sleep Study - Results Type of Sleep Study: Polysomnography Prior sleep studies: Yes Year and Where: 2020 - [facility] CPAP Compliance Data - Data Reviewed with Patient Average duration of nightly device use: 6 HRS 3 MINS 51 SEC Compliance rate %: 77.8 (07/03/23-12/29/23; 172/180 days used) Current pressure setting (cmH2O): 7-15 Average residual AHI: 2.9 Central apnea: 0.1 Obstructive apnea: 1 Hypopnea: 1.8 Average large leak: 1 mins 9 secs Subjective Patient concerns: reports: aerophagia (occasional), nasal congestion, dry mouth, nose, throat. denies: mask discomfort, air blowing in eyes, mask leak noise, condensation in mask/hose, epistaxis Observed to snore while using device: Yes (occasional) Current pressure setting perceived as: comfortable On therapy, patient: reports: sleeping better, awakening more refreshed, being more awake and alert during the day, more rested overall. denies: drowsiness while driving Initial [place] Sleepiness Scale score: 7 (in 2019 ) Current [place] Sleepiness Scale score: 9 (01/01/24) Allergies and Home Medications Known drug allergies: Yes (as listed) Drug allergies reviewed: Yes Home medication list reviewed: Yes (no changes) Allergy and home medication list: Allergies adhesive Allergy (Verified 12/31/23 12:08) Unknown aspirin Allergy (Verified 12/31/23 12:08) Unknown diphenhydramine [From Benadryl] Allergy (Verified 12/31/23 12:08) Anxiety fluticasone [From Flonase] Allergy (Verified 12/31/23 12:08) Dizziness promethazine [From Phenergan] Allergy (Verified 12/31/23 12:08) Anaphylaxis shellfish derived Allergy (Verified 12/31/23 12:08) Unknown Review of Systems Review of systems same as previous: Yes (NO CHANGE) Physical Exam Vital signs obtained and entered by: ZOILA Quiroz MA Blood Pressure: 118/74 (RIGHT ARM) Cuff size: long Heart Rate: 70 O2 Saturation: 100 Height: 5 ft Weight: 268 lb Body Mass Index: 52.3 BMI Classification: Morbidly Obese Impression and Plan 1. Obstructive Sleep Apnea-Hypopnea Syndrome, mild, with good treatment compliance and good apnea control. On CPAP therapy, the patient has better sleep quality and is more rested overall. Patient has significant improvement of their sleep apnea and is satisfied with current CPAP therapy. She states she occasionally gets aerophagia but is able to take care of it and it is not uncomfortable. She snores occasionally but her feels it is because of the position of her neck. She has tried multiple pillows and we discussed a CPAP pillow at her last visit. I will write a prescription for the CPAP pillow\positional pillow to see if her insurance will cover the cost. Patient's apnea severity and rationale for treatment to reduce apnea, improve sleep quality and reduce cardiovascular and cerebrovascular events was reviewed. I also reviewed the benefit of consistent device use of CPAP for arrhythmia and mood disorder. 2. Obesity, unspecified. Currently patients BMI is 52.3. Obesity increases the risk of apnea, CPAP pressure requirements and overall health risks especially cardiovascular and diabetes. Thus patient is advised to lose weight. * Continue auto CPAP pressure at 7-15 cmH2O * CPAP pillow/positional pillow * Notify me if snoring with mask or feeling that the pressure is too much or too little * Attempt to lose weight * Call this office if any problems using CPAP * Return for follow up in 12 months, or sooner if concerns arise Counseling Topics: Spare mask, Weight loss health impact Prescriptions: Other (cpap pillow/positional pillow) Follow up with Sleep Care in: 1 year Visit Type: In Office Time Spent with Patient (minutes): 20 Provider Statement: I spent 100% of the Face to Face Visit with the patient with greater than 50% spent counseling the patient and coordination of care.
[2024-01-01 14:57] VITALS: BP 118/74; O2SAT 100
== END 2024-01-01 13:46 | disposition home or self-care (01) ==
LOC: SC 13:45
PROVIDERS: ATTEND Nurse Practitioner Family
DX: G47.33 Obstructive sleep apnea (adult) (pediatric) (principal); E66.01 Morbid (severe) obesity due to excess calories; Z68.43 Body mass index [BMI] 50.0-59.9, adult
CPT/HCPCS: 99212; 99213

== ENCOUNTER 2024-03-09 15:17 | Outpatient (CLI) | payer OTHER ==
--- NOTE | 2024-03-09 16:20 | SLEEP CARE CONSULTATION ---
Information from patient questionnaire entered by Zoila Kulkarni. I have reviewed and concur with the information entered by Zoila Kulkarni. This document represents the service I personally performed and the decisions made by me, Cristy Mendoza ARNP. History of Present Illness Service Date and Time: 03/09/2024 1517 Previous diagnosis: Mild, Obstructive Sleep Apnea-Hypopnea Syndrome AHI: 11.0 (in 2020) Reason for follow up: other (22 MONTH F/U) Accompanied by: Spouse Equipment type: CPAP (Dreamstation 2; s/u 01/2021;) Equipment obtained from: Other ([employer]; has Dreamstation 2) Mask style: Nasal Prior sleep studies: Yes Year and Where: 2020 - [facility] Type of Sleep Study: Polysomnography HPI additional information: ISMA JIMENEZ was diagnosed to have mild, AHI 11, obstructive sleep apnea- hypopnea syndrome and returned today with spouse for CPAP therapy 2 month follow-up. Sleep Study - Results Type of Sleep Study: Polysomnography Prior sleep studies: Yes Year and Where: 2020 - [facility] CPAP Compliance Data - Data Reviewed with Patient Average duration of nightly device use: 6 HRS 24 MINS 19 SECS Compliance rate %: 85 (01/06/24-03/05/24) Current pressure setting (cmH2O): 7-15 Average residual AHI: 2.3 Central apnea: 0.1 Obstructive apnea: 0.8 Hypopnea: 1.4 Average large leak: 14 secs Subjective Patient concerns: reports: aerophagia, mask discomfort, mask leak noise, nasal congestion, dry mouth, nose, throat, epistaxis (sometimes), other (headache). denies: air blowing in eyes, condensation in mask/hose Observed to snore while using device: Yes Current pressure setting perceived as: too high (hard to breathe against initially sometimes) On therapy, patient: reports: awakening more refreshed, more rested overall. denies: drowsiness while driving Initial [place] Sleepiness Scale score: 7 (in 2019 ) Current [place] Sleepiness Scale score: 9 (03/09/24) Allergies and Home Medications Known drug allergies: Yes (as listed) Drug allergies reviewed: Yes Home medication list reviewed: Yes (no changes) Allergy and home medication list: Allergies adhesive Allergy (Verified 03/07/24 11:37) Unknown aspirin Allergy (Verified 03/07/24 11:37) Unknown diphenhydramine [From Benadryl] Allergy (Verified 03/07/24 11:37) Anxiety fluticasone [From Flonase] Allergy (Verified 03/07/24 11:37) Dizziness promethazine [From Phenergan] Allergy (Verified 03/07/24 11:37) Anaphylaxis shellfish derived Allergy (Verified 03/07/24 11:37) Unknown Review of Systems Review of systems same as previous: Yes (no changes) Physical Exam Vital signs obtained and entered by: ZOILA Quiroz MA Blood Pressure: 122/88 (LEFT ARM) Cuff size: long Heart Rate: 88 O2 Saturation: 97 Height: 5 ft Weight: 273 lb 12.8 oz Body Mass Index: 53.4 BMI Classification: Morbidly Obese Impression and Plan 1. Obstructive Sleep Apnea-Hypopnea Syndrome, mild, with good treatment compliance and good apnea control. On CPAP therapy, the patient has better sleep quality and is more rested overall. Patient comes in today with concerns that she feels she is declining with her respiratory status. She has a smart watch that is medical grade that is showing her oxygen levels in the mid 80s at times during the night. She has been to her manager documentation and neurologist who have since directed her here thinking she may need a BiPAP. Her AHI appears to be well-controlled but she continues to have aerophasia, headaches, snoring when using her device and occasional nasal congestion. She says often she will put the mask on and the pressure feels so high, she cannot breath with it on. She has to oral vent a little till it seems to reduce and becomes more comfortable. She may benefit from a Bi-level PAP and we will see if we can get a titration study to explore this option. Patient's apnea severity and rationale for treatment to reduce apnea, improve sleep quality and reduce cardiovascular and cerebrovascular events was reviewed. I also reviewed the benefit of consistent device use of CPAP for arrhythmia, mood disorder. 2. Obesity, unspecified. Currently patients BMI is 53.4. Obesity increases the risk of apnea, CPAP pressure requirements and overall health risks especially cardiovascular and diabetes. Thus patient is advised to lose weight. * Continue auto CPAP pressure at 7-15 cmH2O * Titration study * Notify me if snoring with mask or feeling that the pressure is too much or too little * Attempt to lose weight * Call this office if any problems using CPAP * Return for follow up after titration study, or sooner if concerns arise Counseling Topics: Spare mask, Weight loss health impact Plan: titration study and follow up Visit Type: In Office Time Spent with Patient (minutes): 29 Provider Statement: I spent 100% of the Face to Face Visit with the patient with greater than 50% spent counseling the patient and coordination of care.
[2024-03-09 16:32] VITALS: BP 122/88; O2SAT 97
== END 2024-03-09 15:18 | disposition home or self-care (01) ==
LOC: SC 15:17
PROVIDERS: ATTEND Nurse Practitioner Family
DX: G47.33 Obstructive sleep apnea (adult) (pediatric) (principal); E66.01 Morbid (severe) obesity due to excess calories; Z68.43 Body mass index [BMI] 50.0-59.9, adult
CPT/HCPCS: 99212; 99213

== ENCOUNTER 2024-04-03 18:00 | Outpatient (CLI) | payer BC, OTHER | END 2024-04-03 23:59 | disposition critical access hospital (66) | LOC: EMS 18:00 | DX: I48.91 Unspecified atrial fibrillation (principal); R42 Dizziness and giddiness | CPT/HCPCS: A0425; A0427 ==

== ENCOUNTER 2024-04-03 18:22 | Emergency (ER) | payer BC, OTHER ==
--- NOTE | 2024-04-03 18:37 | ED Physician Documentation ---
History of Present Illness - Stated complaint Stated Complaint: HEART PALP - History obtained from History obtained from: Patient - Additonal information Additional information: She is a long history of palpitations, has had a implantable loop recorder in for couple of years now. Had 1 episode of A-fib per her on it early last month and also had a recent chest x-ray for cough which was concerning for cardiomegaly. She was told by her human relations manager nurse to do complete rest and as such has been mostly sedentary for basically the last month. Today she was more active and going out to the grocery store and while there started to feel rapid heartbeat. Her [place] watch flag for A-fib. There is no chest pain or trouble breathing and she feels back to normal now. Prehospital EKG was sinus rhythm. 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 RIDER: Ovarian cysts, Fibroids : None HEENT: None Psych: Anxiety, Post traumatic stress disorder Musculoskeletal: None Derm: None - Past Surgical History Past Surgical History: Yes General: Other /GANG RIDER: Tubal ligation, LEEP (Cervical surgery) Cardiovascular: Lobectomy - Present Medications Home Medications: Ambulatory Orders Medication Instructions Recorded Confirmed Metoprolol Tartrate [Lopressor] 25 mg PO BID 03/31/21 03/09/24 Pantoprazole [Protonix inj] 40 mg PO DAILY 03/31/21 03/09/24 clonazePAM [Clonazepam] 0.5 mg PO TID 03/31/21 03/09/24 Albuterol Sulf [Ventolin Hfa See Rx Instructions .ROUTE .COMPLEX 07/16/23 03/09/24 Inhaler] Cholecalciferol [Vitamin D3] See Rx Instructions .ROUTE .COMPLEX 07/16/23 03/09/24 Fluticasone Propion/Salmeterol See Rx Instructions .ROUTE .COMPLEX 07/16/23 03/09/24 [Advair 250-50 Diskus] [place] Oil See Rx Instructions .ROUTE .COMPLEX 07/16/23 03/09/24 Psyllium Husk [Fiber] See Rx Instructions .ROUTE .COMPLEX 07/16/23 03/09/24 Rizatriptan Benzoate [Rizatriptan] See Rx Instructions .ROUTE .COMPLEX 07/16/23 03/09/24 diazePAM [Diazepam] See Rx Instructions .ROUTE .COMPLEX 07/16/23 03/09/24 - Allergies Allergies/Adverse Reactions: Allergies Allergy/AdvReac Type Severity Reaction Status Date / Time adhesive Allergy Unknown Verified 04/03/24 18:48 aspirin Allergy Unknown Verified 04/03/24 18:48 diphenhydramine Allergy Anxiety Verified 04/03/24 18:48 [From Benadryl] fluticasone [From Flonase] Allergy Dizziness Verified 04/03/24 18:48 promethazine [From Phenergan] Allergy Anaphylaxis Verified 04/03/24 18:48 shellfish derived Allergy Unknown Verified 04/03/24 18:48 - Social History Does the pt smoke?: No Smoking Status: Never smoker Does the pt drink ETOH?: Yes Does the pt have substance abuse?: No - Immunizations Immunizations are current?: No - POLST Patient has POLST: No PD ED PE NORMAL - Vitals Vital signs reviewed: Yes - General General: Alert and oriented X 3, No acute distress - Cardiac Cardiac: RRR, No murmur - Respiratory Respiratory: No respiratory distress, Clear bilaterally - Abdomen Abdomen: Soft, Non tender - Extremities Extremities: No edema, No calf tenderness / cord - Neuro Neuro: Alert and oriented X 3, Normal speech Results - Vitals Vitals: Vital Signs - 24 hr 04/03/24 04/03/24 18:27 18:45 Temperature 36.8 C Heart Rate 75 Respiratory 18 Rate Blood Pressure 134/92 H Blood Pressure 134/92 H [Right] O2 Saturation 98 Oxygen O2 Source Room air - EKG (time done) 1838 EKG releavant findings:: EKG personally interpreted by author of this note. Relevant findings are: Rate: Rate (enter#) (78) Rhythm: NSR [place]: Normal Intervals: Normal HI QRS: Normal, Low voltage Ischemia: Normal ST segments - Labs Labs: Laboratory Tests 04/03/24 04/03/24 18:55 18:55 WBC 7.1 RBC 4.24 Hgb 12.4 Hct 38.9 MCV 91.7 MCH 29.2 MCHC 31.9 L RDW 14.0 Plt Count 316 MPV 10.2 Neut # (Auto) 5.1 Lymph # (Auto) 1.3 L [place] # (Auto) 0.5 Eos # (Auto) 0.1 Baso # (Auto) 0.1 Absolute Nucleated RBC 0.00 Nucleated RBC % 0.0 Sodium 140 Potassium 3.7 Chloride 107 Carbon Dioxide 26 Anion Gap 7.0 BUN 8 Creatinine 0.8 Estimated GFR (MDRD) 76 L Glucose 85 Calcium 9.5 Magnesium 1.7 Total Bilirubin 0.4 AST 13 ALT 11 Alkaline Phosphatase 83 Total Protein 6.9 Albumin 4.1 Globulin 2.8 Albumin/Globulin Ratio 1.5 PD Medical Decision Making - ED course ED course: CBC and CMP are normal. She is in normal sinus rhythm here and I was able to review the strips on her phone which actually look like sinus rhythm with artifact. She has an implantable loop recorder in place and appropriate cardiology follow-up. Departure - Departure Disposition: 01 Home, Self Care Clinical Impression: Palpitations Condition: Stable Record reviewed to determine appropriate education?: Yes Comments: Looking at the strips on your phone I do not think you had A-fib today. I do think though that following up with the air commodore and for an echocardiogram is very appropriate. The loop recorder will be more accurate as far as the detection of arrhythmias than the phone. As discussed, although there is the concern for cardiomegaly, I do not think you need to be on complete rest pending the echocardiogram as that is actually going to be worse for you then doing some light activity and potentially light exercise such as walking. Admittedly we do not want you doing heavy exercise such as running, but we do not want you to be deconditioned either.
[2024-04-03 18:58] LABS: BASOPHILS # (AUTO) 0.1 10^3/uL (0.0-0.1); BASOPHILS % (AUTO) 0.8 %; EOSINOPHILS # (AUTO) 0.1 10^3/uL (0.0-0.7); EOSINOPHILS % (AUTO) 1.4 %; HCT - HEMATOCRIT 38.9 % (37.0-47.0); HGB - HEMOGLOBIN 12.4 g/dL (12.0-16.0); LYMPHOCYTES # (AUTO) 1.3 10^3/uL (1.5-3.5); LYMPHOCYTES % (AUTO) 18.7 %; MEAN CORPUSCULAR HEMOGLOBIN 29.2 pg (27.0-31.0); MEAN CORPUSCULAR HGB CONC 31.9 g/dL (32.0-36.0); MEAN CORPUSCULAR VOLUME 91.7 fL (81.0-99.0); MEAN PLATELET VOLUME 10.2 fL (7.9-10.8); MONOCYTES # (AUTO) 0.5 10^3/uL (0.0-1.0); MONOCYTES % (AUTO) 6.4 %; NEUTROPHILS # (AUTO) 5.1 10^3/uL (1.5-6.6); NEUTROPHILS % (AUTO) 72.1 %; PLT - PLATELET COUNT 316 10^3/uL (130-450); RED BLOOD COUNT 4.24 10^6/uL (4.20-5.40); WHITE BLOOD COUNT 7.1 x10^3/uL (4.8-10.8)
[2024-04-03 19:15] LABS: ALBUMIN 4.1 g/dL (3.2-5.5); ALBUMIN/GLOBULIN RATIO 1.5 (1.0-2.2); BILIRUBIN,TOTAL 0.4 mg/dL (0.2-1.0); CALCIUM 9.5 mg/dL (8.5-10.3); CREATININE 0.8 mg/dL (0.6-1.3); MAGNESIUM 1.7 mg/dL (1.7-2.3); POTASSIUM 3.7 mmol/L (3.5-4.5); TOTAL PROTEIN 6.9 g/dL (6.4-8.9)
[2024-04-03 19:49] VITALS: BP 117/74; O2SAT 95
== END 2024-04-03 19:44 | disposition home or self-care (01) ==
LOC: EDUNIT# → ED 18:22
DX: R00.2 Palpitations (principal); Z95.818 Presence of other cardiac implants and grafts
CPT/HCPCS: 36415; 80053; 83735; 85025; 93005; 99283; 99284

== ENCOUNTER 2024-04-11 16:21 | Emergency (ER) | payer BC, OTHER ==
[2024-04-11 16:52] VITALS: O2SAT 99
--- NOTE | 2024-04-11 17:49 | ED Physician Documentation ---
PD BUCK HEENT - Stated complaint Stated Complaint: RT EAR PX - Chief complaint Chief Complaint: Heent - Additional information Additional information: 48-year-old female with history of hypertension, arrhythmia, lung cancer, hypothyroidism, fibroids, ovarian cysts, PTSD presents emergency department for right ear pain. Patient says that they recently turned on their AC units and she does have a history of having sensitivity to dust in the past.. She is sensitive to dust and other environmental allergies. She also says that she has a history of vertigo and does feel like she is been having vertigo symptoms last couple days as well where she feels like the room is spinning around her. She says when she puts her glasses on her vertigo seems to be getting worse. Mild nausea no vomiting no recent fevers or chills she says that she has a chronic cough that has been ongoing since August. 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: Ovarian cysts, Fibroids : None HEENT: None Psych: Anxiety, Post traumatic stress disorder Musculoskeletal: None Derm: None - Past Surgical History Past Surgical History: Yes General: Other /SOLDER CREAM MAKER: Tubal ligation, LEEP (Cervical surgery) Cardiovascular: Lobectomy - Present Medications Home Medications: Ambulatory Orders Medication Instructions Recorded Confirmed Metoprolol Tartrate [Lopressor] 25 mg PO BID 03/31/21 03/09/24 Pantoprazole [Protonix inj] 40 mg PO DAILY 03/31/21 03/09/24 clonazePAM [Clonazepam] 0.5 mg PO TID 03/31/21 03/09/24 Albuterol Sulf [Ventolin Hfa See Rx Instructions .ROUTE .COMPLEX 07/16/23 03/09/24 Inhaler] Cholecalciferol [Vitamin D3] See Rx Instructions .ROUTE .COMPLEX 07/16/23 03/09/24 Fluticasone Propion/Salmeterol See Rx Instructions .ROUTE .COMPLEX 07/16/23 03/09/24 [Advair 250-50 Diskus] [place] Oil See Rx Instructions .ROUTE .COMPLEX 07/16/23 03/09/24 Psyllium Husk [Fiber] See Rx Instructions .ROUTE .COMPLEX 07/16/23 03/09/24 Rizatriptan Benzoate [Rizatriptan] See Rx Instructions .ROUTE .COMPLEX 07/16/23 03/09/24 diazePAM [Diazepam] See Rx Instructions .ROUTE .COMPLEX 07/16/23 03/09/24 Meclizine [Antivert] 25 mg PO TID 3 Days #18 tablet 04/11/24 - Allergies Allergies/Adverse Reactions: Allergies Allergy/AdvReac Type Severity Reaction Status Date / Time adhesive Allergy Unknown Verified 04/11/24 16:43 aspirin Allergy Unknown Verified 04/11/24 16:43 diphenhydramine Allergy Anxiety Verified 04/11/24 16:43 [From Benadryl] fluticasone [From Flonase] Allergy Dizziness Verified 04/11/24 16:43 promethazine [From Phenergan] Allergy Anaphylaxis Verified 04/11/24 16:43 shellfish derived Allergy Unknown Verified 04/11/24 16:43 - Social History Does the pt smoke?: No Smoking Status: Never smoker Does the pt drink ETOH?: Yes Does the pt have substance abuse?: No - Immunizations Immunizations are current?: No - POLST Patient has POLST: No PD ED PE NORMAL - Vitals Vital signs reviewed: Yes - General General: Alert and oriented X 3, No acute distress PD ED PE EXPANDED - HEENT HEENT: Atraumatic, PERRL, EOMI, Ears normal, Nasal congestion, Moist mucous membranes. No: R TM red, R TM dull, R TM bulging, R TM retracted, R TM loss of landmarks, Rhinorrhea Results - Vitals Vitals: Vital Signs - 24 hr 04/11/24 04/11/24 16:43 18:28 Temperature 36.7 C 36.1 C L Heart Rate 84 80 Respiratory 18 18 Rate Blood Pressure 125/78 129/96 H O2 Saturation 99 99 Oxygen O2 Source Room air PD Medical Decision Making - ED course ED course: 48-year-old female presents emergency department for right ear pain. Upon further evaluation she does not appear to have an acute otitis media. Right tympanic membrane appears to be intact no trauma no erythema no drainage no swelling to the external canal make me less concerned about a possible external otitis media. I believe the patient is experiencing eustachian tube dysfunction. She said that her vertigo symptoms feel exactly like they felt in the past they do not feel different. She was started on meclizine here in the ER to help with her vertigo symptoms was told to follow-up with primary care provider she has noes nystagmus with eyes at rest or with movement. She was encouraged to take Sudafed and Flonase at home to help with her eustachian tube dysfunction she also has an ENT specialist so she was told to follow-up with outpatient. At this point in time patient is safe for discharge return precautions given all questions answered. Departure - Departure Disposition: Home, Self Care Clinical Impression: Eustachian tube dysfunction, BPPV (benign paroxysmal positional vertigo) Instructions: Vertigo Paroxysmal Positional Prescriptions: Meclizine [Antivert] 25 mg PO TID 3 Days #18 tablet Comments: Thank you for trusting us with your care. We have given you meclizine here in the emergency department to help with your vertigo symptoms but as we discussed it is important that you go home and do Joya's maneuver to help with your vertigo. If you are still having difficulty managing the symptoms [place] [facility] they can follow-up with outpatient. You can take Sudafed as well as Flonase and Zyrtec to help with your eustachian tube dysfunction. I have sent a prescription of meclizine to your preferred pharmacy and follow-up with your primary care provider as well as your licensed nuclear operator for further evaluation of eustachian tube dysfunction. Please come back to the ER for having any fevers or chills worsening symptoms or any other concerning emergent symptoms. Forms: PCP List Discharge Date/Time: 04/11/24 18:28
[2024-04-11] MEDS: MECLIZINE 12.5 MG TABLET PO STA (18:22)
[2024-04-11 18:31] VITALS: BP 129/96
== END 2024-04-11 18:28 | disposition home or self-care (01) ==
LOC: ED 16:21
DX: H69.81 Other specified disorders of Eustachian tube, right ear (principal); H81.10 Benign paroxysmal vertigo, unspecified ear; R05.3 Chronic cough; I10 Essential (primary) hypertension
CPT/HCPCS: 99283; A9270